=== PATIENT | male | born 1960 | race Caucasian/White ===

== ENCOUNTER 2018-03-19 13:21 | Outpatient (REF) | payer BC, SELFPAY ==
[2018-03-21 11:31] LABS: Hepatitis C Ab w Rflx HCV PCR Negative (NEGAT)
[2018-03-21 11:48] LABS: PSA, Screening 0.8 ng/ml (0-3.5)
== END 2018-03-19 13:41 ==
LOC: NCHCN 13:21
PROVIDERS: PCP Family Medicine; Visit Provider Nurse Practitioner
DX: Z00.00 Encounter for general adult medical examination without abnormal findings (principal); Z11.59 Encounter for screening for other viral diseases; Z12.5 Encounter for screening for malignant neoplasm of prostate
CPT/HCPCS: 84153; 86803

== ENCOUNTER 2019-03-22 17:00 | Outpatient (REF) | payer BC, SELFPAY ==
[2019-03-22 21:06] LABS: ALT 18 U/L (16-63); AST 17 U/L (15-37); Anion Gap 11.1 mmol/L (3-11); BUN 14 mg/dL (7-18); CO2 24.9 mmol/L (21.0-32.0); CREATININE 1.34 mg/dL (0.70-1.30); Calculated LDL 148 mg/dL; Chloride 106 mmol/L (98-107); Cholesterol 209 mg/dL (<200); Estimated GFR 54.37 (mL/min/1.73m2); Glucose 92 mg/dL (74-106); HDL Cholesterol 35 mg/dL (40-60); Potassium 4.5 mmol/L (3.5-5.1); Sodium 142 mmol/L (136-145); Triglyceride 131 mg/dL (<150)
== END 2019-03-22 17:20 ==
LOC: NCHCN 17:00
PROVIDERS: PCP Family Medicine; Visit Provider Nurse Practitioner Family
DX: E66.3 Overweight (principal); E78.5 Hyperlipidemia, unspecified
CPT/HCPCS: 80048; 80061; 84450; 84460

== ENCOUNTER 2019-12-23 14:33 | Outpatient (REF) | payer BC, SELFPAY ==
[2019-12-26 16:26] LABS: Patient Race White; SARS-CoV-2 RNA Undetected (Undetected); SARS-CoV-2 Specimen Source Nasal
== END 2019-12-23 14:53 ==
LOC: NCHCN 14:33
PROVIDERS: PCP Family Medicine; Visit Provider Nurse Practitioner Family
DX: Z20.828 Contact with and (suspected) exposure to other viral communicable diseases (principal)
CPT/HCPCS: U0003

== ENCOUNTER 2020-07-10 13:39 | Outpatient (REF) | payer BC, SELFPAY ==
[2020-07-10 21:59] LABS: Iron 85 ug/dL (65-175)
[2020-07-10 22:02] LABS: ALT 31 U/L (16-63); AST 24 U/L (15-37); Anion Gap 11.1 mmol/L (3-11); BUN 18 mg/dL (7-18); CO2 22.9 mmol/L (21.0-32.0); CREATININE 1.5 mg/dL (0.70-1.30); Calcium 8.7 mg/dL (8.5-10.1); Calculated LDL 139 mg/dL (<100); Chloride 106 mmol/L (98-107); Cholesterol 213 mg/dL (<200); Estimated GFR 47.42 (mL/min/1.73m2); Glucose 97 mg/dL (74-106); HDL Cholesterol 29 mg/dL (40-60); Potassium 4.3 mmol/L (3.5-5.1); Sodium 140 mmol/L (136-145); Triglyceride 225 mg/dL (<150)
[2020-07-13 11:48] LABS: PSA, Screening 0.8 ng/mL (0.0-4.5)
== END 2020-07-10 13:40 | disposition home or self-care (01) ==
LOC: NCHCN 13:39
PROVIDERS: PCP Family Medicine; Visit Provider Nurse Practitioner Family
DX: E78.5 Hyperlipidemia, unspecified (principal); E66.3 Overweight; Z00.00 Encounter for general adult medical examination without abnormal findings
CPT/HCPCS: 80048; 80061; 84153; 83540; 84450; 84460

== ENCOUNTER 2020-08-12 13:08 | Outpatient (REF) | payer BC, SELFPAY ==
[2020-08-12 21:33] LABS: CREATININE 1.4 mg/dL (0.70-1.30); Estimated GFR 51.35 (mL/min/1.73m2)
== END 2020-08-12 13:09 | disposition home or self-care (01) ==
LOC: NCHCN 13:08
PROVIDERS: PCP Family Medicine; Visit Provider Nurse Practitioner Family
DX: R94.4 Abnormal results of kidney function studies (principal)
CPT/HCPCS: 82565

== ENCOUNTER 2020-12-17 16:23 | Inpatient (IN) | payer BC, SELFPAY ==
[2020-12-17] VITALS (33 sets, daily range): BP systolic 121–133; BP diastolic 72–92; PULSE 80–96; RESP 0–30; TEMP 36.8; O2SAT 94–99
--- NOTE | 2020-12-17 16:30 | RT.EKG_ITS ---
APPROVED REPORT Exam: Resting ECG Reason for Exam: SOB Patient Location: E HR:95 bpm ECG Measurements Heart Rate 95 AXIS LA 183 P 56 QRSd 92 QRS -59 QT 344 T 53 QTc 433 Conclusion Sinus rhythm...normal P axis, V-rate 60- 99 Probable left atrial enlargement...P >50mS, <-0.10mV V1 LAD, consider left anterior fascicular block...axis(240,-40), S>R II III aVF. Sinus. LAFB. No STEMI. I have reviewed and interpreted ECG and agree with software generated interpretation.
--- NOTE | 2020-12-17 17:00 | DI.CT_ITS ---
Exam(s) CT CHEST PE CTA EXAM: CT CHEST PE CTA CLINICAL HISTORY: Left leg swelling, Dyspnea, R/O PE, PNA. TECHNIQUE: Imaging Protocol: Axial CT angiography was performed with multi-slice acquisition and mu lti-planar and/or 3D reconstructions. CONTRAST MATERIAL: Intravenous: Omnipaque 350 Contrast volume:structured data in ml COMPARISON: No exams were available for comparison FINDINGS: Pulmonary Arteries: Large filling defects bilateral lower lobe pulmonary arteries. Small embolus see n in anterior left upper lobe vessel small subsegmental thrombus right upper lobe branch. Tracheobro nchial tree: Patent where visualized. Mediastinum and Stefania: No dominant adenopathy or fluid collection. Pulmonary parenchyma: No consolidation or dominant measurable mass. No architectural distortion. Pleura: No effusion or pneumothorax. Heart: The heart is not dilated. Aorta: Ascending aorta dilated of 4.5 cm. Upper abdomen: Unremarkable. Bones: Unremarkable IMPRESSION: Significant bilateral bilateral lower lobe pulmonary emboli, RADIATION DOSE DELIVERED: 592.13mGy.cm Total DLP DATA REPOSITORY: All CT scans at this facility are submitted to the National Radiology Data Registry (NRDR) Dose Index Registry (DIR) with the [employer] (ACR). RADIATION OPTIMIZATION: All CT scans at this facility use at least one of these dose optimization te chniques: automated exposure control; mA and/or kV adjustment per patient size (includes targeted exa ms where dose is matched to clinical indication); or iterative reconstruction.
[2020-12-17 17:09] LABS: Source Nasal/Nares
--- NOTE | 2020-12-17 17:10 | ED.GENADUL_ITS ---
Discharge Plan Discharge Details Chief Complaint: Vascular Admit Date/Time: 12/17/20 20:18 Admit Provider: Uche Gilmore Attending Provider: Uche Gilmore Primary Care Provider: Ricarda Suh ED Provider: Dipti Springer Discharge Data Discharge Date/Time-TO BE ENTERED AT DEPARTURE: 12/17/20 21:14 Medical Decision Making 60-year-old male presents to the ER with chief complaint of left leg swelling and pain which began approximately 1 week ago. Patient reports that he was recently driving a car from [place]. He was seen by his primary care provider today and was referred here. He also reports dyspnea, shortness of breath. He denies any chest pain. Per temporary staff accountant left calf is 2 cm larger than the right. He has a past medical history of hypertension and anxiety. He is a former smoker. No other associated symptoms. Cardiac work-up included serial troponins, PT APTT, D-dimer. Covid swab D-dimer elevated at 4849 Covid negative, rate my blood cell count shows 14.33, absolute neutrophil 7.18, BUN 19 creatinine 1.5 GFR 47, alk phos 130 1929: Spoke with [facility] radiologist who reports bilateral PE's, will seek admission. Give left lower extremity as a source will give Lovenox 1 mg/kg. 1940: Spoke with Dr. Gilmore who is on for hospitalist regarding patient case and details. He agrees to accept patient for admission. Discussed plan of care with patient and family who verbalized understanding and are in agreement with plan. Patient is hemodynamically stable nontachycardic 97% on room air. [facility] report CTA Chest PE FINDINGS: Pulmonary arteries: There is filling defect in the left lower lobe segmental branch of the left pulmonary artery propagating into the subsegmental branches, compatible with pulmonary embolism. There is also filling defect in the distal primary branch of the right pulmonary artery propagating into right lower lobe branches, compatible pulmonary embolism. Aorta: Unremarkable. No aortic aneurysm. No aortic dissection. Lungs: There is a 3 mm subpleural left lower lobe pulmonary nodule. Pleural spaces: Unremarkable. No pneumothorax. No pleural effusion. Heart: The RV/LV ratio is 1.4. No cardiomegaly. No pericardial effusion. Lymph nodes: Unremarkable. No enlarged lymph nodes. Bones/joints: Unremarkable. No acute fracture. Soft tissues: Unremarkable. IMPRESSION: 1. Moderate to large filling defects in the right and left pulmonary arteries, compatible with pulmonary embolism. 2. 3 mm left lower lobe pulmonary nodule Patient remained alert and oriented hemodynamically stable throughout stay. This text was generated using [employer]ens[employer] system, please disregard any oddities of phrase or misspellings. HPI General Mode of arrival: wheelchair . Date/Time Provider Initiated Documentation: 12/17/20 16:36 . Limitations to Documentation: no limitations . Information obtained by: patient, RN notes reviewed and old records reviewed . HPI Narrative: 60-year-old male presents to the ER with chief complaint of left leg swelling and pain which began approximately 1 week ago. Patient reports that he was recently driving a car from [place]. He was seen by his primary care provider today and was referred here. He also reports dyspnea, shortness of breath. He denies any chest pain. Per temporary staff accountant left calf is 2 cm larger than the right. He has a past medical history of hypertension and anxiety. He is a former smoker. No other associated symptoms. Related Data Home Medications Medication Instructions Recorded Confirmed duloxetine 20 mg PO DAILY 03/21/17 12/17/20 bupropion HCl 150 mg PO DAILY 12/17/20 12/17/20 ropinirole 0.25 mg PO HS 12/17/20 12/17/20 Allergies Allergy/AdvReac Type Severity Reaction Status Date / Time buspirone Allergy Unverified 12/17/20 16:43 General Stated Complaint: Vascular KALLIE: 2 Review of Systems All systems reviewed & are unremarkable except as noted in HPI and below Cardiovascular Cardiovascular: Reports leg edema, Reports dyspnea and Reports dyspnea on exertion Respiratory Respiratory: Reports as per HPI, Reports dyspnea and Reports dyspnea on exertion [facility] Surgical History Tonsillectomy Social History Smoking/Tobacco Use Status: Former Tobacco Use Smoking risk assessment performed?: Yes Alcohol Intake: former Drug use: Never Substance use type: does not use Do you feel safe at home: Yes Do you feel safe in your relationship?: Yes Exam Narrative Exam Narrative: Constitutional: Alert and oriented x3. Appears stated age. Normal body habitus. Head: Normocephalic, no trauma. Eyes: Pupils PERRLA, Red reflex noted, EOM's intact. Eyelids symmetrical without lesions, discharge, or swelling. ENT: Bilateral TM's WNL, External ear normal to inspection, no mastoid TTP, swelling, or erythema, Nasal turbinates WNL, no nasal discharge. Normal dentition, Posterior pharynx WNL, no exudate. Chest: RRR, Normal S1, S2, distal pulses intact. Resp: Left lower lobe expiratory rhonchi, lungs clear to auscultation all other lobes. Musculoskeletal: Unable to assess gait, dorsal pedal pulses intact bilateral feet, they are cool to the touch. No mottling or cyanosis noted. Is complaining of left lower extremity pain and swelling. Skin: No suspicious rashes or lesions. Capillary refill less than 2 sec. Neurologic: Cranial nerves II-XII intact. Alert and oriented x 3. DTR's intact. Hematologic/Lymphatic: No ecchymosis, no lymphadenopathy. Course Vital Signs Vital signs: Vital Signs Temperature 36.8 C 12/17/20 16:39 Pulse 80 12/17/20 16:39 Respiratory Rate 13 12/17/20 16:39 Blood Pressure 133/92 H 12/17/20 16:39 Pulse Oximetry 99 12/17/20 16:39 Temperature 36.8 C 12/17/20 16:39 Temperature Source Skin 12/17/20 16:39 Pulse 80 12/17/20 16:39 Respiratory Rate 19 12/17/20 16:56 Respiratory Effort Non-Labored 12/17/20 16:45 Blood Pressure 133/92 H 12/17/20 16:39 Pulse Oximetry 99 12/17/20 16:39 Oxygen Delivery Method Room Air 12/17/20 16:39 Oxygen Flow Rate 0 12/17/20 16:39 Pain Level 9 12/17/20 16:39 Lab/Test Results Lab/Test Results: Laboratory Tests Range/Units 12/17/20 17:03 COVID-19 Source Nasal/Nares
[2020-12-17 17:12] LABS: Abs Immature Grans 0.05 10^3/uL (0.0-0.06); Absolute Basophil Count 0.06 10^3/uL (0.0-0.2); Absolute Eosinophil Count 0.19 10^3/uL (0.0-0.7); Absolute Lymphocyte Count 5.57 10^3/uL (1.2-3.4); Absolute Monocyte Count 1.29 10^3/uL (0.1-0.8); Basophils % 0.4; Eosinophils % 1.3; HCT 45.6 % (40.0-50.0); HGB 15.6 g/dL (13.5-17.5); Immature Grans % 0.3; Lymphocytes % 38.9; MCH 29.2 pg (27.0-33.0); MCHC 34.2 % (32.0-36.0); MCV 85.4 fL (80-95); MPV 9.6 fL (8.0-11.0); Neutrophils % 50.1; Nucleated RBC 0 %; Platelet Count 353 10^3/uL (130-400); RBC 5.34 10^6/uL (4.36-5.78); RDW 12.8 % (11.8-14.1); RDW-SD 39.7 fL; WBC 14.33 10^3/uL (4.4-10.8)
[2020-12-17 17:19] LABS: Absolute Neutrophil Count 7.18 10^3/uL (1.2-6.7)
[2020-12-17 17:27] LABS: Prothrombin Time 10.5 sec (9.3-11.0)
[2020-12-17 17:30] LABS: ALT 19 U/L (16-63); AST 15 U/L (15-37); Albumin 3.5 g/dL (3.4-5.0); Alkaline Phosphatase 130 U/L (46-116); BUN 19 mg/dL (7-18); Bilirubin, Total 0.5 mg/dL (0.2-1.0); CREATININE 1.5 mg/dL (0.70-1.30); Calcium 8.7 mg/dL (8.5-10.1); Chloride 105 mmol/L (98-107); Estimated GFR 47.42 (mL/min/1.73m2); Glucose 105 mg/dL (74-106); Magnesium 2.4 mg/dL (1.8-2.4); Potassium 4.3 mmol/L (3.5-5.1); Sodium 139 mmol/L (136-145); Total Protein 7.9 g/dL (6.4-8.2)
[2020-12-17 17:33] LABS: Troponin I < 0.05 ng/mL (<0.06)
[2020-12-17 17:43] LABS: Diff Comment Agrees w/ Instrument; RBC Morphology Normal
[2020-12-17 17:47] LABS: D-Dimer 4849 ng/mlFEU (<500)
[2020-12-17 18:29] LABS: COVID-19 PCR Negative (Negative)
[2020-12-17] MEDS: Omnipaque 350 MG/ML 100 ML BTL IJ (18:53)
[2020-12-17] MEDS: Normal Saline Flush 10 ML SYR IVP (18:54)
[2020-12-17] MEDS: Normal Saline - Diluent 50 ML VIAL IV (18:54)
--- NOTE | 2020-12-17 19:40 | DI.[facility]AD_ITS ---
PROCEDURE INFORMATION: Exam: CTA Chest With Contrast Exam date and time: 12/17/2020 5:14 PM Age: 60 years old Clinical indication: Other: Left leg swelling, dyspnea, R/O pe, pna TECHNIQUE: Imaging protocol: Computed tomographic angiography of the chest with contrast. 3D rendering (Not supervised by radiologist): MIP and/or 3D reconstructed images were created by the technologist. COMPARISON: CR CHEST 2 VIEWS PA,LAT 06/15/2017 9:10 PM FINDINGS: Pulmonary arteries: There is filling defect in the left lower lobe segmental branch of the left pulmonary artery propagating into the subsegmental branches, compatible with pulmonary embolism. There is also filling defect in the distal primary branch of the right pulmonary artery propagating into right lower lobe branches, compatible pulmonary embolism. Aorta: Unremarkable. No aortic aneurysm. No aortic dissection. Lungs: There is a 3 mm subpleural left lower lobe pulmonary nodule. Pleural spaces: Unremarkable. No pneumothorax. No pleural effusion. Heart: The RV/LV ratio is 1.4. No cardiomegaly. No pericardial effusion. Lymph nodes: Unremarkable. No enlarged lymph nodes. Bones/joints: Unremarkable. No acute fracture. Soft tissues: Unremarkable. IMPRESSION: 1. Moderate to large filling defects in the right and left pulmonary arteries, compatible with pulmonary embolism. 2. 3 mm left lower lobe pulmonary nodule. THIS REPORT CONTAINS FINDINGS THAT MAY BE CRITICAL TO PATIENT CARE. The findings were verbally communicated via telephone conference with THONY BEACH at 7:31 PM EDT on 12/17/2020. The findings were acknowledged and understood. Dictated and Authenticated by: Jimmy Sanchez MD. Ordering:FABIENNE Resendez MD
[2020-12-17] MEDS: Enoxaparin 120 MG/0.8 ML SYR 115 MG SC (19:42)
--- NOTE | 2020-12-17 20:00 | RT.EKG_ITS ---
APPROVED REPORT Exam: Resting ECG Reason for Exam: SOB Patient Location: E HR:82 bpm ECG Measurements Heart Rate 82 AXIS NC 185 P 53 QRSd 94 QRS -56 QT 371 T 44 QTc 434 Conclusion Sinus rhythm...normal P axis, V-rate 60- 99 Inferior infarct, old...Q >35mS, II III aVF I have reviewed and interpreted ECG and agree with software generated interpretation. There are no significant changes compared to prior EKG performed on 12/17/2020 at 16:43.
[2020-12-17 20:24] LABS: Troponin I < 0.05 ng/mL (<0.06)
--- NOTE | 2020-12-17 20:49 | W.PM.HP.N ---
Date of service: 12/17/20 Time of Service: 20:49 Assessment and Plan Assessment and plan (1) Pulmonary emboli: Status: Chronic Assessment and plan: Likely provoked; frequently sedentary / operating a motor vehicle. Significant enough burden to cause AYALA. No supplemental O2 needs at rest; will need to assess with activity. Likely secondary to a LLE DVT; Venous US of LLE pending Therapeutic lovenox initiated. Discuss NOAC options with patient. Echocardiogram to assess for right heart strain. Questionable R atrial enlargment as per findings on EKG. (2) Renal insufficiency: Status: Chronic Assessment and plan: Creatinine 1.4 and 1.5 on several occasions this year. Has dx of hypertension in his records; normotensive during this admission, but may be the source of what is appearing to be CKD. Consider renal US. Avoid nephrotoxic agents and hypotension. Ensure adequate hydration. (3) Anxiety disorder: Status: Acute Assessment and plan: Cont Buproprion and duloxetine (4) Obesity: Status: Chronic Assessment and plan: Added risk factor for DVT. Encourage healthy eating and activity (5) Leukocytosis: Status: Acute Assessment and plan: Questionably demargination of leukocytes. No infectious signs/symptoms. Monitor. (6) Pulmonary nodule: Status: Acute Assessment and plan: 3mm nodule Outpt follow up in 6 months. (7) Essential hypertension: Status: Acute Assessment and plan: SBP in the 120's. Not taking an antihypertensive medication. Monitor. History of Present Illness History of Present Illness Chief Complaint: Dyspnea on exertion, left leg swellig Narrative: This is a 60-year-old male with a h/o HTN and anxiety who presented to the ER with chief complaint of left leg swelling and pain which began approximately 1 week ago. Patient reports that he was recently driving a car from [place] but his believed the symptoms began before that trip. 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 He was seen by his primary care provider and was referred to the ED. He also reports dyspnea with ambulation , shortness of breath. He denies any chest pain. Per staff electronic warfare officer in the ED left calf is 2 cm larger than the right. He is a former smoker but quit at the age of 23. ED w/u showed an elevated d-dimer. WBC count of 14.33. Creatinine 1.5. CTA chest results: Moderate to large filling defects in the right and left pulmonary arteries, compatible with pulmonary embolism. 3 mm left lower lobe pulmonary nodule. Lovenox 1mg/kg BID dosing initiated in the ED with consideration of options for anticoagulation to be discussed further after admission. Review of Systems All systems reviewed & are unremarkable except as noted in HPI and below PFSH Surgical History Tonsillectomy Social History Smoking/Tobacco Use Status: Former Tobacco Use Smoking risk assessment performed?: Yes Alcohol Intake: former Drug use: Never Substance use type: does not use Do you feel safe at home: Yes Do you feel safe in your relationship?: Yes Meds Allergies and Home Medications Allergies Allergy/AdvReac Type Severity Reaction Status Date / Time buspirone Allergy Unverified 12/17/20 16:43 Home Medications Medication Instructions Recorded Confirmed Type duloxetine 20 mg PO DAILY 03/21/17 12/17/20 History bupropion HCl 150 mg PO DAILY 12/17/20 12/17/20 History ropinirole 0.25 mg PO HS 12/17/20 12/17/20 History Exam Const General: cooperative and no acute distress Nutritional Appearance: obese Orientation: alert and oriented x3 Eyes General: appearance normal, both eyes and all related structures Sclera: sclerae normal Pupils: PERRL Neck Neck: normal visual inspection and no JVD Resp Effort & Inspection: normal respiratory effort Auscultation: clear to auscultation bilaterally Cardio Rate: regular rate Rhythm: regular rhythm Heart Sounds: S1 normal and S2 normal GI Palpation: soft and nontender Auscultation: normal bowel sounds Skin General skin exam: no rashes or lesions noted Neuro General: moves all extremities Cranial Nerves: facial strength normal Cognition: normal cognition Speech: speech normal Extrem General: calf tenderness on the left (with dorsiflexion of ankle) and edema Laterality: left (calf/ankle) Psych Appearance: grossly normal Mental Status: mental status grossly normal Speech and Movement: speech and movement normal Mood: congruent mood Affect: normal affect Results Labs Result diagrams: 12/17/20 17:00 12/17/20 17:00 Labs: Laboratory Results - last 24 hr 12/17/20 12/17/20 12/17/20 17:00 17:00 17:00 WBC 14.33 H RBC 5.34 Hgb 15.6 Hct 45.6 MCV 85.4 MCH 29.2 MCHC 34.2 RDW 12.8 Plt Count 353 MPV 9.6 Immature Gran % 0.3 Neutrophils % 50.1 Lymphocytes % 38.9 Monocytes % 9.0 Eosinophils % 1.3 Basophils % 0.4 Nucleated RBC % 0 Absolute Neutrophils 7.18 H Absolute Lymphocytes 5.57 H Absolute Monocytes 1.29 H Absolute Eosinophils 0.19 Absolute Basophils 0.06 RBC Morphology Normal PT 10.5 INR 1.0 APTT 27.0 D-Dimer 4849 H Sodium 139 Potassium 4.3 Chloride 105 Carbon Dioxide 25.0 Anion Gap 9.0 BUN 19 H Creatinine 1.5 H Estimated GFR/1.73 m2 47.42 Glucose 105 Calcium 8.7 Magnesium 2.4 Total Bilirubin 0.5 AST 15 ALT 19 Alkaline Phosphatase 130 H Troponin I < 0.05 Total Protein 7.9 Albumin 3.5 COVID-19 Source SARS-CoV-2 (PCR) 12/17/20 12/17/20 17:03 20:00 WBC RBC Hgb Hct MCV MCH MCHC RDW Plt Count MPV Immature Gran % Neutrophils % Lymphocytes % Monocytes % Eosinophils % Basophils % Nucleated RBC % Absolute Neutrophils Absolute Lymphocytes Absolute Monocytes Absolute Eosinophils Absolute Basophils RBC Morphology PT INR APTT D-Dimer Sodium Potassium Chloride Carbon Dioxide Anion Gap BUN Creatinine Estimated GFR/1.73 m2 Glucose Calcium Magnesium Total Bilirubin AST ALT Alkaline Phosphatase Troponin I < 0.05 Total Protein Albumin COVID-19 Source Nasal/Nares SARS-CoV-2 (PCR) Negative Last Vital Signs Temp 36.8 C 12/17/20 16:39 Pulse 82 12/17/20 20:01 Resp 17 12/17/20 20:20 BP 121/80 12/17/20 20:01 Pulse Ox 96 12/17/20 20:20
[2020-12-17] MEDS: Melatonin 3 MG TAB PO (22:41)
[2020-12-18] VITALS (7 sets, daily range): BP systolic 105–129; BP diastolic 70–88; PULSE 76–91; RESP 14–18; TEMP 36.4–37.2; O2SAT 91–98
--- NOTE | 2020-12-18 | DI.US_ITS ---
Exam(s) US LOWER EXTREMITY VENOUS LT EXAM: US LOWER EXTREMITY VENOUS LT CLINICAL HISTORY: Pulmonary emboli, swelling.. TECHNIQUE: Lower extremity venous ultrasound performed using grayscale, color-flow, and spectral Do ppler analysis. COMPARISON: No exams were available for comparison FINDINGS: The common femoral, profundus femoral through mid femoral vein are free of thrombus. The distal femo ral vein, popliteal vein through peroneal veins show thrombus. The length of the thrombus is approxi mately 20 cm in length. The posterior tibial veins are patent. No saphenous vein thrombosis or othe r superficial venous thrombosis is seen. No hematoma or Vazquez's cyst is seen. IMPRESSION: Deep venous thrombosis from the distal femoral vein through peroneal veins. DATA REPOSITORY:
[2020-12-18 07:08] LABS: Abs Immature Grans 0.04 10^3/uL (0.0-0.06); Basophils % 0.8; HCT 43.9 % (40.0-50.0); HGB 14.9 g/dL (13.5-17.5); Immature Grans % 0.3; MCH 29.1 pg (27.0-33.0); MCHC 33.9 % (32.0-36.0); MCV 85.7 fL (80-95); MPV 10.2 fL (8.0-11.0); Monocytes % 10.5; Neutrophils % 50.4; Nucleated RBC 0 %; Platelet Count 345 10^3/uL (130-400); RBC 5.12 10^6/uL (4.36-5.78); RDW 12.9 % (11.8-14.1); RDW-SD 40.2 fL; WBC 13.32 10^3/uL (4.4-10.8)
[2020-12-18 07:10] LABS: Absolute Basophil Count 0.11 10^3/uL (0.0-0.2); Absolute Eosinophil Count 0.27 10^3/uL (0.0-0.7); Absolute Neutrophil Count 6.71 10^3/uL (1.2-6.7)
[2020-12-18] MEDS: buPROPion-XL 150 MG TABCR PO (08:12)
[2020-12-18] MEDS: DULoxetine 20 MG CAP PO (08:13)
[2020-12-18] MEDS: Enoxaparin 120 MG/0.8 ML SYR SC (08:13)
[2020-12-18 08:14] LABS: BUN 22 mg/dL (7-18); CREATININE 1.5 mg/dL (0.70-1.30); Calcium 8.3 mg/dL (8.5-10.1); Chloride 104 mmol/L (98-107); Estimated GFR 47.42 (mL/min/1.73m2); Glucose 103 mg/dL (74-106); Magnesium 2.2 mg/dL (1.8-2.4); Potassium 4.5 mmol/L (3.5-5.1); Sodium 139 mmol/L (136-145)
[2020-12-18] MEDS: Normal Saline Flush 10 ML SYR IVP (08:15)
[2020-12-18] MEDS: Acetaminophen 325 MG TAB PO (11:59)
--- NOTE | 2020-12-18 16:38 | DSE_ITS ---
Date of service: 12/18/20 Time of Service: 16:45 DS: Diagnosis Discharge Diagnosis (1) Pulmonary emboli: Status: Chronic (2) DVT (deep venous thrombosis): Status: Chronic Asessment and Plan: LLE, present on admission (3) Renal insufficiency: Status: Chronic (4) Anxiety disorder: Status: Chronic (5) Leukocytosis: Status: Acute Asessment and Plan: reactive (6) Pulmonary nodule: Status: Acute (7) Essential hypertension: Status: Acute (8) Obesity: Status: Chronic (9) COVID-19 ruled out by laboratory testing: Status: Acute Discharge Plan Disposition Patient Disposition: HOME Condition: Improving Discharge Details Reason For Visit: Pulmonary Emboli Admit Date/Time: 12/17/20 20:18 Admit Provider: Uche Gilmore Attending Provider: Uche Gilmore Primary Care Provider: Ricarda Suh Hospital Course Hospital Course: Mr Martinez is a 60 year old male with PMHx of anxiety disorder, CKD III, obesity with BMI of 33, who was admitted to [facility] hospitalist service on 12/17/20 and is being discharged unexpectedly early on 12/18/20 after presenting to [facility] ED with left leg swelling and pain and being diagnosed with bilateral pulmonary emboli as wel as a DVT from left distal femoral vein through peroneal veins. This is felt to be due to immobilization during lengthy drives to and from [place]. The patient is initiated on lovenox. He was hemodynamically stable and has not had any arrhythmias. His troponins were negative. Echo was unavailable during his hospitalization but is being ordered for him as an outpatient. While initially there was a low oxygen requirement, this completely resolved by the time of discharge, including on ambulation. The patient is felt to be safe for discharge home today with a prescription for eliquis, which is confirmed to be covered by his insurance. He is being referred to [facility] hematology for follow up. Additionally, there is a 3 mm lung nodule noted on his CTA of the chest, which will need to be followed up by PCP as outpatient. Care for patient as well as completion of his discharge summary on day of discharge took 45 minutes. Home Meds and New Rx's Prescriptions: New Eliquis 5 mg tablet See Rx Instructions .ROUTE .COMPLEX Qty: 74 RF: 0 Continued duloxetine 20 MG capsule,delayed release(DR/EC) 20 mg PO DAILY RF: 0 ropinirole 0.25 mg tablet 0.25 mg PO HS RF: 0 bupropion HCl 150 mg tablet extended release 24 hr 150 mg PO DAILY RF: 0 Discharge Instructions Instructions: Apixaban (By mouth), Pulmonary Embolism (DC), Deep Vein Thrombosis (DC) Additional Instructions: Return to the hospital with any fever, bleeding, chest pain, dizziness, or sh ortness of breath. Follow up with your PCP and with hematology. Follow up for your echocardiogram. Take eliquis (apixaban) as prescribed - do not miss any doses. Stand Alone Forms: Nursing Discharge Form Referrals: HEMATOLOGY/ONC,[facility] [OTHER] - (Office will call you with follow up appointment.) Ricarda Suh [Primary Care Provider] - (Please call Monday to make a follow up appointment) Activity:: Activity as Tolerated Equipment/Supplies:: No Equipment Needed Diet:: As Tolerated Discharge Orders Discharge Orders: Discharge Order (Routine); Ordered 12/18/20 Ordered By: Trina Taylor Other Ambulatory Orders: US echocardiogram (Routine) Timeframe: [id number] Facility: [facility] - Location: DIAGNOSTIC IMAGING Ordered By: Trina Taylor DS: Summary Time Spent with Patient providing and/or coordinating discharge services: Greater than 30 minutes Status at Discharge Functional status at discharge: independent ambulation Overall status at discharge: patient is back to baseline Mental Status: mental status grossly normal Speech and Movement: speech and movement normal Mood: congruent mood Affect: normal affect Exam Narrative Exam Narrative: General: Very pleasant middle-aged male who appears to be slightly [place], A&Ox3 HEENT: EOMI, MMM Heart: RRR, no m/r/g Lungs: CTAB Abdomen: soft, nontender, nondistended Extremities: trace edema LLE, no edema RLE Psych Mental Status: mental status grossly normal Speech and Movement: speech and movement normal Mood: congruent mood Affect: normal affect DS: Data Vitals/I&O Vitals and I&O: Vital Signs Temperature 36.4 C L 12/18/20 15:51 Temperature Source Temporal Artery Scan 12/18/20 15:51 Pulse 76 12/18/20 15:51 Pulse Rhythm Regular 12/18/20 02:21 Pulse 88 12/17/20 20:20 Respiratory Rate 18 12/18/20 15:51 Respiratory Effort Non-Labored 12/18/20 02:21 Respiratory Depth Normal 12/18/20 02:21 Respiratory Pattern Normal 12/18/20 02:21 Blood Pressure 110/70 12/18/20 15:51 Blood Pressure Mean 89 12/17/20 20:01 Pulse Oximetry 96 12/18/20 15:51 Oxygen Delivery Method Room Air 12/18/20 15:51 Oxygen Flow Rate 0 12/18/20 15:51 Pain Level 3 12/18/20 11:59 Intake & Output 12/17/20 12/18/20 12/18/20 23:59 11:59 23:59 Intake Total 250 / 250 910 / 910 Balance 250 / 250 910 / 910 Weight 113.398 kg Intake: IV Oral 240 / 240 910 / 910 Other: Urine Color Yellow Urine Appearance Clear Clear Voiding Methods Toilet Data Completed and Pending Completed studies during hospitalization [Text1]: Venous doppler LLE: Deep venous thrombosis from the distal femoral vein through peroneal veins. CTA chest: 1. Moderate to large filling defects in the right and left pulmonary arteries, compatible with pulmonary embolism. 2. 3 mm left lower lobe pulmonary nodule. Labs on day of discharge: Labs from last 24 hours 12/18/20 12/18/20 12/17/20 06:25 06:25 20:00 WBC 13.32 H RBC 5.12 Hgb 14.9 Hct 43.9 MCV 85.7 MCH 29.1 MCHC 33.9 RDW 12.9 Plt Count 345 MPV 10.2 Immature Gran % 0.3 Neutrophils % 50.4 Lymphocytes % 36.0 Monocytes % 10.5 Eosinophils % 2.0 Basophils % 0.8 Nucleated RBC % 0 Absolute Neutrophils 6.71 H Absolute Lymphocytes 4.80 H Absolute Monocytes 1.40 H Absolute Eosinophils 0.27 Absolute Basophils 0.11 RBC Morphology PT INR APTT D-Dimer Sodium 139 Potassium 4.5 Chloride 104 Carbon Dioxide 24.0 Anion Gap 11.0 BUN 22 H Creatinine 1.5 H Estimated GFR/1.73 m2 47.42 Glucose 103 Calcium 8.3 L Magnesium 2.2 Total Bilirubin AST ALT Alkaline Phosphatase Troponin I < 0.05 Total Protein Albumin PSA Screen COVID-19 Source SARS-CoV-2 (PCR) 12/17/20 12/17/20 12/17/20 17:03 17:00 17:00 WBC RBC Hgb Hct MCV MCH MCHC RDW Plt Count MPV Immature Gran % Neutrophils % Lymphocytes % Monocytes % Eosinophils % Basophils % Nucleated RBC % Absolute Neutrophils Absolute Lymphocytes Absolute Monocytes Absolute Eosinophils Absolute Basophils RBC Morphology PT 10.5 INR 1.0 APTT 27.0 D-Dimer 4849 H Sodium Potassium Chloride Carbon Dioxide Anion Gap BUN Creatinine Estimated GFR/1.73 m2 Glucose Calcium Magnesium Total Bilirubin AST ALT Alkaline Phosphatase Troponin I Total Protein Albumin PSA Screen Pending COVID-19 Source Nasal/Nares SARS-CoV-2 (PCR) Negative 12/17/20 12/17/20 17:00 17:00 WBC 14.33 H RBC 5.34 Hgb 15.6 Hct 45.6 MCV 85.4 MCH 29.2 MCHC 34.2 RDW 12.8 Plt Count 353 MPV 9.6 Immature Gran % 0.3 Neutrophils % 50.1 Lymphocytes % 38.9 Monocytes % 9.0 Eosinophils % 1.3 Basophils % 0.4 Nucleated RBC % 0 Absolute Neutrophils 7.18 H Absolute Lymphocytes 5.57 H Absolute Monocytes 1.29 H Absolute Eosinophils 0.19 Absolute Basophils 0.06 RBC Morphology Normal PT INR APTT D-Dimer Sodium 139 Potassium 4.3 Chloride 105 Carbon Dioxide 25.0 Anion Gap 9.0 BUN 19 H Creatinine 1.5 H Estimated GFR/1.73 m2 47.42 Glucose 105 Calcium 8.7 Magnesium 2.4 Total Bilirubin 0.5 AST 15 ALT 19 Alkaline Phosphatase 130 H Troponin I < 0.05 Total Protein 7.9 Albumin 3.5 PSA Screen COVID-19 Source SARS-CoV-2 (PCR) [facility] Medical History (Updated 12/18/20 @ 16:45 by Trina Taylor MD) Anxiety disorder Obesity Renal insufficiency Surgical History Tonsillectomy Social History Smoking/Tobacco Use Status: Former Tobacco Use Smoking risk assessment performed?: Yes Alcohol Intake: former Drug use: Never Substance use type: does not use Do you feel safe at home: Yes Do you feel safe in your relationship?: Yes
[2020-12-18 18:11] LABS: PSA, Screening 0.7 ng/mL (0.0-4.5)
--- NOTE | 2020-12-18 20:12 | PDOC.CMPRO ---
- If Service Date Differs Date of service: 12/18/20 Time of Service: 20:12 Care Management Progress Note S/O: Shady was discharged home today, less than 24 hours after admission. KARL was asked to meet with Shady regarding a new prescription for Eliquis. KARL called the pharmacy, and found that he has a $0 copay. KARL met with Shady as he was eating his lunch today. He was pleasant and engaged in interaction. He reported that he was told he may be discharged soon. KARL provided information about his new medication being covered by his insurance, which he was happy about. He stated that he splits his time between [place] and [place], and he is very independent. He did not share any concerns with KARL. He was driven home via private vehicle by his . A: Shady is a 60 year old male admitted to [facility] on 12/17/20 with Pulmonary Emboli. P: Shady returned home today with no new services. His drove him home via private vehicle. He will follow up with his PCP and discharge plan of care.
== END 2020-12-18 17:57 | disposition home or self-care (01) | DRG 176 ==
LOC: ER 17:16 → MS 21:07
PROVIDERS: Internal Medicine; Admitting Provider Family Medicine; Emergency Provider Registered Nurse Emergency; PCP Family Medicine; Visit Provider Family Medicine
DX: I26.99 Other pulmonary embolism without acute cor pulmonale (principal); I82.452 Acute embolism and thrombosis of left peroneal vein; I82.412 Acute embolism and thrombosis of left femoral vein; N18.9 Chronic kidney disease, unspecified; I12.9 Hypertensive chronic kidney disease with stage 1 through stage 4 chronic kidney disease, or unspecified chronic kidney disease; F41.9 Anxiety disorder, unspecified; E66.9 Obesity, unspecified; R91.1 Solitary pulmonary nodule; D72.829 Elevated white blood cell count, unspecified; Z87.891 Personal history of nicotine dependence; Z20.822 Contact with and (suspected) exposure to COVID-19; Z68.33 Body mass index [BMI] 33.0-33.9, adult
CPT/HCPCS: 36415; 71275; 80048; 80053; 84153; 87635; 93005; 96372; 99285; 83735; 84484; 85025; 85379; 85610; 85730; 93010; 93971; 99223; 99239; J1650; J3490

== ENCOUNTER 2020-12-21 14:44 | Outpatient (CLI) | payer BC, SELFPAY | END 2020-12-21 15:04 | PROVIDERS: PCP Family Medicine; Visit Provider Family Medicine | DX: I34.0 Nonrheumatic mitral (valve) insufficiency (principal); I77.810 Thoracic aortic ectasia; R06.02 Shortness of breath | CPT/HCPCS: 93306 ==

== ENCOUNTER → 2021-07-23 18:10 | Outpatient (CLI) | payer BC, SELFPAY ==
--- NOTE | 2021-07-23 15:19 | DI.RAD_ITS ---
Exam(s) XR CHEST 2V PA LATERAL EXAM: XR CHEST 2V PA LATERAL CLINICAL HISTORY: SOB R06.02 PULMONARY NODULE R91.1 SMOKER F17.200 TECHNIQUE: 2D digital imaging was performed of the chest. Images were obtained. PA and lateral v iews were obtained. COMPARISON: CR CHEST 2 VIEWS PA,LAT from 06/15/2017 FINDINGS: MEDIASTINUM: Normal. HEART: Normal. PULMONARY VASCULATURE: Normal. LUNGS: Clear. The lungs are hyperinflated consistent with underlying COPD. No pulmonary nodules are identified. PLEURAL SPACE: No pleural effusion or pneumothorax. BONE:Within normal limits for the patient's age. OTHER FINDINGS:Normal. IMPRESSION: No acute pulmonary findings. DATA REPOSITORY: RADIATION DOSE DELIVERED:
== END ==
PROVIDERS: PCP Family Medicine; Visit Provider Nurse Practitioner Family
DX: R06.02 Shortness of breath (principal); F17.200 Nicotine dependence, unspecified, uncomplicated; J44.9 Chronic obstructive pulmonary disease, unspecified; R91.1 Solitary pulmonary nodule
CPT/HCPCS: 71046

== ENCOUNTER 2021-08-19 17:52 | Outpatient (REF) | payer BC, SELFPAY ==
[2021-08-19 18:34] LABS: HCT 46.9 % (40.0-50.0); HGB 15.7 g/dL (13.5-17.5); MCH 29.1 pg (27.0-33.0); MCHC 33.5 % (32.0-36.0); MCV 87 fL (80-95); MPV 10.7 fL (8.0-11.0); Platelet Count 366 10^3/uL (130-400); RBC 5.39 10^6/uL (4.36-5.78); RDW 12.7 % (11.8-14.1); RDW-SD 40.5 fL; WBC 9.01 10^3/uL (4.4-10.8)
[2021-08-19 18:56] LABS: ALT 31 U/L (16-63); AST 32 U/L (15-37); Albumin 3.8 g/dL (3.4-5.0); Alkaline Phosphatase 103 U/L (46-116); Anion Gap 10.7 mmol/L (3-11); BUN 20 mg/dL (7-18); Bilirubin, Total 0.4 mg/dL (0.2-1.0); CO2 21.3 mmol/L (21.0-32.0); CREATININE 1.4 mg/dL (0.70-1.30); Calcium 8.4 mg/dL (8.5-10.1); Calculated LDL 120 mg/dL (<100); Chloride 108 mmol/L (98-107); Cholesterol 185 mg/dL (<200); Estimated GFR 51.18 (mL/min/1.73m2); Glucose 100 mg/dL (74-106); HDL Cholesterol 30 mg/dL (40-60); Potassium 3.9 mmol/L (3.5-5.1); Sodium 140 mmol/L (136-145); TSH (W/Ref FT4) 1.12 uIU/mL (0.36-3.74); Total Protein 7.4 g/dL (6.4-8.2); Triglyceride 177 mg/dL (<150)
== END 2021-08-19 17:53 | disposition home or self-care (01) ==
LOC: NCHCN 17:52
PROVIDERS: PCP Family Medicine; Visit Provider Nurse Practitioner Family
DX: R68.89 Other general symptoms and signs (principal); E66.9 Obesity, unspecified; R07.89 Other chest pain; E78.5 Hyperlipidemia, unspecified
CPT/HCPCS: 80053; 80061; 85027; 84443

== ENCOUNTER → 2021-09-07 00:49 | Outpatient (CLI) | payer BC, SELFPAY ==
--- NOTE | 2021-09-07 | DI.CT_ITS ---
Exam(s) CT CHEST PE CTA EXAM: CT CHEST PE CTA CLINICAL HISTORY: F/U PE, H/O LLL NODULE,I26.99,R91.1. TECHNIQUE: Imaging Protocol: CT angiography of the chest was performed using pulmonary embolus corry col. Multi planar reconstructions were performed. CONTRAST MATERIAL: Intravenous: Omnipaque 350 Contrast volume: 100 cc COMPARISON: CT CT CHEST PE CTA from 12/17/2020 FINDINGS: CHEST: PULMONARY ARTERIES: There are no intraluminal filling defects to suggest acute pulmonary emboli.The p reviously present bilateral pulmonary emboli seen on 12/17/2020 appear to have resolved. There are n o intraluminal filling defects at this time. LUNGS: There are no infiltrates nor evidence of pulmonary infarction.. There are no pleural effusions . MEDIASTINUM: There is no hilar nor mediastinal adenopathy. Visualized thyroid unremarkable. CARDIAC: Heart size is upper normal. There is no pericardial effusion.There is aneurysmal dilatation of the ascending thoracic aorta which exhibits diameter 4.9 cm. No dissection. The diameter of the mid aortic arch is 2.7 cm. Diameter of the proximal descending thoracic aorta is 3 cm. Diameter of the mid descending thoracic aorta is 3 cm. Diameter of the distal descending thoracic aorta is 2.6 cm. No shift of the interventricular septum. No prominent reflux of contrast into the intrahepatic veins. PARTIALLY VISUALIZED UPPERMOST ABDOMEN: OSSEOUS: There is a fracture of the posterolateral aspect of the left 9th rib again noted, nondisplaced. No a dditional rib fractures evident. No compression fractures.. IMPRESSION: 1. No evidence of acute pulmonary emboli. Previously present bilateral pulmonary emboli seen on 12/04 appears to have resolved. No evidence of pulmonary infarction.No pleural effusions. 2. Dilated ascending thoracic aorta which exhibits diameter of 4.9 cm. There is no evidence of aorti c dissection. 3. Again noted is a nondisplaced fracture of the posterolateral aspect of the left 9th rib, unchanged RADIATION DOSE DELIVERED: 593.54mGy.cm Total DLP DATA REPOSITORY: All CT scans at this facility are submitted to the National Radiology Data Registry (NRDR) Dose Index Registry (DIR) with the [employer] (ACR). RADIATION OPTIMIZATION: All CT scans at this facility use at least one of these dose optimization te chniques: automated exposure control; mA and/or kV adjustment per patient size (includes targeted exa ms where dose is matched to clinical indication); or iterative reconstruction.
[2021-09-07] MEDS: Normal Saline Flush 10 ML SYR IVP (11:38)
[2021-09-07] MEDS: Omnipaque 350 MG/ML 100 ML BTL IJ (11:39)
== END ==
PROVIDERS: PCP Family Medicine; Visit Provider Nurse Practitioner Family
DX: R91.1 Solitary pulmonary nodule (principal); I77.810 Thoracic aortic ectasia; S22.32XA Fracture of one rib, left side, initial encounter for closed fracture; X58.XXXA Exposure to other specified factors, initial encounter; Z86.711 Personal history of pulmonary embolism
CPT/HCPCS: 71275; J3490

== ENCOUNTER → 2021-09-22 00:33 | Outpatient (CLI) | payer BC, SELFPAY ==
--- OUTSIDE RECORDS SUMMARY | 2021-09-22 00:34 | XMS_ITS | Encounter Summary ---
:1960 Author Organization [facility] [place] [address] Care Team Providers Name Role Phone Dyllan Lozada MD Primary Care Provider Reason for Visit Reason Comments Procedure Encounter Details Date Type Department Care Team Description 03/29/2013 Office Visit Dermatology at [facility] Basal c ell carcinoma [place] MD (Primary Dx) [address] Faisal B DERMATOLOGY [place], [place] [address] [id number] [phone] Social History Tobacco Use Types Packs/Day Years Used Date Unknown If Ever Smoked Sex Assigned at Date Recorded Not on file documented as of this encounter Progress Notes [facility] MD - 03/29/2013 11:51 AM EST Clinical Impression: Shave biopsy proven sclerosing BCCA, left forehead. Size: 1 cm, with margins 1.6 cm. Deep suture: 4-0 Vicryl. Surface suture: 5-0 Ethilon. Followup: One week for suture removal and biopsy results. Indications for surgery, possible adverse outcomes, and activity restrictions were discussed. Informed verbal consent was obtained. Skin surface was prepared with 4% chlorhexidine and draped in the usual sterile manner. An excision was carried out of the circular sclerosing BCCA of the left forehead and a square piece of tissue removed, and then bilateral advancement flaps were mobilized and pulled into the center. Therefore, the access being horizontal to close the central defect. Closure was with suture noted above. Patient tolerated well. Triangles were removed at each origin of the bilateral advancement flap. The total size of the area sutured to repair the bilateral advance flap was 5.5 cm on edge and 1.5 cm in wedge. Wound was dressed, wound care reviewed. Return to clinic in seven days for suture removal and biopsy results. Begin wound care on Monday. documented in this encounter Plan of Treatment Not on filedocumented as of this encounter Visit Diagnoses Diagnosis Basal cell carcinoma - Primary Basal cell carcinoma of skin, site unspe cified documented in this encounter Care Teams Intake Worker Relationship Specialty Start Date End Date Dyllan Lozada MD PCP - General 03/05/13 01/01/21 [address] [place] [address] documented as of this encounter
--- OUTSIDE RECORDS SUMMARY | 2021-09-22 00:34 | XMS_ITS | Clinical Summary ---
:1960 Author Organization [facility] [place] [address] Care Team Providers Name Role Phone Ricarda Suh MD Primary Care Provider Allergies No known active allergies Medications Medication Sig Dispensed Refills Start Date End Date Status DULoxetine (CYMBALTA) 60 Take 60 mg by 0 Active mg capsule mouth daily. buPROPion (WELLBUTRIN Take 300 mg by 0 Active XL) 300 mg 24 hr tablet mouth every morning. clonAZEpam (KLONOPIN) Take 0.5-1 mg by 0 Active 0.5 mg disintegrating mouth 2 times tablet daily as needed. Psyllium (METAMUCIL) 1.7 Take 1-2 Wafers 0 Active g Wafr by mouth. [place]-3 Fatty Acids-Fish Take 1 capsule 0 Active Oil (FISH OIL) 360-1,200 by mouth. mg Cap Active Problems Problem Noted Date Visit for suture removal 04/05/2013 Basal cell carcinoma 03/29/2013 Other seborrheic keratosis 03/05/2013 Nevus 03/05/2013 Social History Tobacco Use Types Packs/Day Years Used Date Unknown If Ever Smoked Sex Assigned at Date Recorded Not on file Plan of Treatment Health Maintenance Due Date Last Done Comments HIV screen 1976 Hepatitis C Screening 1976 Lipid Screening 1976 Tdap adult 1977 Tetanus vaccine 1977 Colonoscopy 2003 Zoster vaccine (1 of 2) 2008 Covid-19 Vaccine (4 - Booster) 04/30/2021 12/28/2020, 07/08, 06/17/2020 Influenza (Flu) vaccine (1 of 1 - 11/04/2021 Influenza standard series) Insurance Payer Benefit Plan Subscriber ID Effective Dates Phone Address Type / Group [facility] [facility] [id number] 2020-Teresa [phone] [address] [facility] [address] [facility] [id number] Advance Directives Documents on File Type Date Recorded Patient Welt Sole Layer Explanati on Advance Directives and Living 06/28/2012 10:08 AM 06/26/12 Will Care Teams Marketing Sales Manager Relationship Specialty Start Date End Date Ricarda Suh MD PCP - General Family Medicine 01/02/21 [address] [place] [address]
--- OUTSIDE RECORDS SUMMARY | 2021-09-22 00:34 | XMS_ITS | Encounter Summary ---
:1960 Author Organization [place] [address] Care Team Providers Name Role Phone Dyllan Lozada MD Primary Care Provider Reason for Referral Diagnostic Test (Routine) - Closed Specialty Diagnoses / Procedures Referred By Contact Refer red To Contact Cardiology Diagnoses Pulmonary embolism, unspecified chronicity, unspecified pulmonary embolism type, unspecified whether acute cor pulmonale present SOB (shortness of breath) Ricarda Suh MD [facility] Non-Inv Card Lab Procedures Mobile Echo [address] [place] [address] [place] [address] Phone: Fax: Referral ID Status Reason Start Date Expiration Date Visits V isits Requested Authorized [id number] Closed Specialty 12/21/2020 12/21/2021 1 1 Service Requested Reason for Visit Diagnostic Test (Routine) - Closed Specialty Diagnoses / Procedures Referred By Contact Refer red To Contact Cardiology Diagnoses Pulmonary embolism, unspecified chronicity, unspecified pulmonary embolism type, unspecified whether acute cor pulmonale present SOB (shortness of breath) Ricarda Suh MD [facility] Non-Inv Card Lab Procedures Mobile Echo [address] [place] [address] [place] [address] Phone: Fax: Referral ID Status Reason Start Date Expiration Date Visits V isits Requested Authorized [id number] Closed Specialty 12/21/2020 12/21/2021 1 1 Service Requested Encounter Details Date Type Department Care Team Description 12/21/2020 Hospital Encounter Mobile Ricarda Suh Pulabelardoa ry embolism, unspecified chronicity, unspecified pulmonary embolism type, unspecified whether acute cor pulmonale present; Echocardiography SOB (shortness of breath) [facility] [address] [place] [phone] Social History Tobacco Use Types Packs/Day Years Used Date Unknown If Ever Smoked Sex Assigned at Date Recorded Not on file documented as of this encounter Medications at Time of Discharge Medication Sig Dispensed Refills Start Date End Date DULoxetine (CYMBALTA) 60 mg Take 60 mg by mouth 0 capsule daily. buPROPion (WELLBUTRIN XL) Take 300 mg by mouth 0 300 mg 24 hr tablet every morning. clonAZEpam (KLONOPIN) 0.5 Take 0.5-1 mg by 0 mg disintegrating tablet mouth 2 times daily as needed. Psyllium (METAMUCIL) 1.7 g Take 1-2 Wafers by 0 Wafr mouth. Kimberly-3 Fatty Acids-Fish Take 1 capsule by 0 Oil (FISH OIL) 360-1,200 mg mouth. Cap documented as of this encounter Plan of Treatment Not on filedocumented as of this encounter Procedures Procedure Name Priority Date/Time Associated Comments Diagnosis ECHOCARDIOGRAM COMPLETE Routine 12/21/2020 4:19 Pulmonary embo lism, Results for this PM EDT unspecified procedure are i n chronicity, the results unspecified section. pulmonary embolism type, unspecified whether acute cor pulmonale presen t SOB (shortness of breath) documented in this encounter Results ECHOCARDIOGRAM COMPLETE (12/21/2020 4:19 PM EDT) P athologist Signature EF 55 HEARTLAB SYSTEM Specimen (Source) Anatomical Location Collection Method / Collectio n Time Received Time / Laterality Volume 12/21/2020 Narrative HEARTLAB SYSTEM - 12/21/2020 4:36 PM EDT Procedure: ?Transthoracic Echocardiogram Patient: ?Juan Shady B. ? (Age): 1960(60y) Med Rec#: ? [id number] ?Sex: ?M ? Site Loc: ? [facility] ?Ht / Wt: ??185.42(cm)/113. Pt. Loc: ?Echo Lab ?BSA: ?2.37 Study Date: ?? 12/21/2020 ?Pt. Type: Outpatient Tape: ? Referring: JUSTIN Reading: Otto White ??([id number]) Press Tool Maker: PATRICIA Press Tool Maker: PATRICIA Diagnosis: *Shortness of breath (R06.02) Rhythm: ? Sinus SUMMARY: 1. Technically difficult study. 2. The left ventricular chamber size is normal. There is normal global left ventricular systolic function. The quantitative left ventricular ejection fraction by biplane Terrell's m ethod is 55%. There are no left ventricular segmental wall motion abnorm alities. 3. Right ventricular chamber size and sy stolic function are within normal limits. The estimated pulmonary a rtery systolic pressure is 20 mmHg. 4. There is aortic valve sclerosis witho ut stenosis. Mild (1+/4+) aortic valve regurgitation is present. 5. 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 There is mild dilatation of the aortic root (3 .8 cm). 6. See remainder of report for additiona l findings. There is no prior study for comparison. Findings ? : Study Quality: ? Adequate Left Ventricle: ? The left ventricul ar chamber size is normal. ?Left ventricular wall thickness is normal. ?No ventricular septal defect is vi sualized. ?There is normal global left ventri cular systolic function. ?The quantitative left ventricular ejection fraction by biplane Terrell's method is 55%. ?There are no left ventricular segm ental wall motion abnormalities. ?The left ventricular diastolic anabela ling pattern is consistent with impaired LV relaxation. ?Doppler assessment is consistent w ith normal left sided filling pressure. Left Atrium: ? The left atrium is no rmal in size. ?No atrial septal defect is visuali zed. Right Ventricle: ? Right ventricular chamber size, wall thickness, and systolic function are within normal limi ts. ?No pulmonary hypertension is noted . ?The estimated pulmonary artery sys tolic pressure is 20 mmHg. ?The estimated right atrial pressur e is 3 mmHg. Right Atrium: ? The right atrium elsie ears normal. Aortic Valve: ? The aortic valve is tricuspid. ?The aortic valve leaflets are mode rately thickened. ?Mild aortic leaflet calcification is visualized. ?There is aortic annular calcificat ion. ?There is no evidence of aortic will ve stenosis. ?Mild (1+/4+) aortic valve regurgit ation is present. Mitral Valve: ? There is mitral genesis lar calcification. ?There is no evidence of mitral lev nosis. ?There is trace mitral regurgitatio n present. Tricuspid Valve: ? The tricuspid will ve appears normal in structure and function. ?There is no tricuspid valve stenos is. ?There is trace tricuspid regurgita tion present. Pulmonic Valve: ? The pulmonic valve appears normal in structure and function. ?There is no pulmonic stenosis pres ent. ?There is trace pulmonic regurgitat ion present. Pericardium: ? No pericardial fat pa d is visualized. Aorta: ? There is mild dilatation of the aortic root.3.8 cm ?There is moderate dilatation of th e ascending aorta. ?The aortic arch is normal in size. Venous: ? The inferior vena cava elsie ears normal in size. ?There is a greater than 50% respir atory change in the inferior vena cava dimension. Misc: ? Technically difficult study. ?See remainder of report for additi onal findings. Chambers 2D ?Value ?Units (Range) ? IVSd (2D) ? 0.92 ? cm ? LVPWd (2D) ?0.91 ? cm ? IVS:LVPW ratio (2D) 1.01 ? ratio ? LVIDd (2D) ?4.55 ? cm ? LVIDs (2D) ?3.2 ?cm ? LV FS (2D) ?29.62 ?% ? EF Teichholz (2D) ?? 56.76 ?% ? Ascending Ao ?4.54 ? cm (2 - 3.5) ? Volumes/Mass ?Value ?Units (Range) ? LA ESV BP (A/L) inde17.63 ? ml/m2 ? LV ESV SP 4CH (MOD) 56.57 ? ml ? LV ESV SP 2CH (MOD) 69.07 ? ml ? LV EDV BP ? 143.84 ? ml ? LV ESV BP ? 64.06 ?ml ? BP EF (MOD) ? 55.46 ?% ? Diastolic/Systolic Function ?Value ?Units (Range) ? MV E-wave Vmax ?0.64 ? m/sec ? MV deceleration fftx944.14 ? m sec ? MV A-wave Vmax ?0.7 ?m/sec ? MV E:A ratio ?0.9 ?ratio ? LV septal e' Vmax ?? 0.08 ? m/sec ? LV lateral e' Vmax ??0.09 ? m/sec ? LV E:e' septal ratio8.13 ? ratio ? LV E:e' lateral rati6.91 ? ratio ? Aortic Valve ?Value ?Units (Range) ? AV Vmax ? 2.07 ? m/sec ? AV VTI ?47.01 ?cm ? AV peak gradient ?17.07 ?mmHg ? AV mean gradient ?10.85 ?mmHg ? LVOT diameter ? 2.34 ? cm ? LVOT Vmax ? 1.23 ? m/sec ? LVOT VTI ?22.87 ?cm ? CO LVOT ? 7.53 ? l/min ? CIRO (continuity Vmax2.56 ? cm2 ? CIRO (continuity Vmax1.08 ? cm2/m2 ? CIRO (continuity VTI)0.89 ? cm2/m2 ? AR PHT ?591.25 ? msec ? Mitral Valve ?Value ?Units (Range) ? MV VTI ?16.99 ?cm ? MV annulus VTI ?20.66 ?cm ? MV PHT ?77.47 ?msec ? MVA (PHT) ? 2.84 ? cm2 ? Tricuspid Valve ?Value ?Units (Range) ? TR Vmax ? 2.08 ? m/sec ? TR peak gradient ?17.27 ?mmHg ? RAP ? 3 ?mmHg ? RVSP ?20 ? mmHg ? Pulmonic Valve/Qp:Qs ?Value ?Units (Range) ? PV Vmax ? 0.71 ? m/sec ? PV VTI ?14.01 ?cm ? PV peak gradient ?2.04 ? mmHg ? PV mean gradient ?1.3 ?mmHg ? RVOT Vmax ? 0.52 ? m/sec ? RVOT VTI ?9.94 ? cm ? RVOT peak gradient ??1.07 ? mmHg ? PV acceleration time41.44 ? msec ? PV ejection time ?252.78 ? msec ? PV AT:ET ?0.16 ? ratio ? This report has been electronically sign ed by: _ Otto White MD ? 12/21/2020 16:35 :43 Images reviewed and interpretation verif ied [facility] Cardiac Ultrasound Laboratory Procedure Note Otto White MD - 12/21/2020Formattin g of this note might be different from the original. Procedure: Transthoracic Echocardiogram Patient: Juan WESTBROOK(Age): [birth year](60y) Med Rec#: [id number] Sex: M [place] [facility] / Wt: 185.42(cm)/113. Pt. Loc: Echo Lab BSA: 2.37 Study Date: 12/21/2020 Pt. Type: Outpati ent Tape: [facility] Reading: Otto White ([id number]) Press Tool Maker: PATRICIA Press Tool Maker: PATRICIA Diagnosis: *Shortness of breath (R06.02) Rhythm: Sinus SUMMARY: 1. Technically difficult study. 2. The left ventricular chamber size is normal. There is normal global left ventricular systolic function. The quantitative left ventricular ejection fraction by biplane Terrell's m ethod is 55%. There are no left ventricular segmental wall motion abnorm alities. 3. Right ventricular chamber size and sy stolic function are within normal limits. The estimated pulmonary a rtery systolic pressure is 20 mmHg. 4. There is aortic valve sclerosis witho ut stenosis. Mild (1+/4+) aortic valve regurgitation is present. 5. 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 There is mild dilatation of the aortic root (3 .8 cm). 6. See remainder of report for additiona l findings. There is no prior study for comparison. Findings : Study Quality: Adequate Left Ventricle: The left ventricular joey mber size is normal. Left ventricular wall thickness is norm al. No ventricular septal defect is visuali zed. There is normal global left ventricular systolic function. The quantitative left ventricular eject ion fraction by biplane Terrell's method is 55%. There are no left ventricular segmental wall motion abnormalities. The left ventricular diastolic filling pattern is consistent with impaired LV relaxation. Doppler assessment is consistent with n ormal left sided filling pressure. Left Atrium: The left atrium is normal i n size. No atrial septal defect is visualized. Right Ventricle: Right ventricular chamb er size, wall thickness, and systolic function are within normal limi ts. No pulmonary hypertension is noted. The estimated pulmonary artery systolic pressure is 20 mmHg. The estimated right atrial pressure is 3 mmHg. Right Atrium: The right atrium appears n ormal. Aortic Valve: The aortic valve is tricus pid. The aortic valve leaflets are moderatel y thickened. Mild aortic leaflet calcification is vi sualized. There is aortic annular calcification. There is no evidence of aortic valve st enosis. Mild (1+/4+) aortic valve regurgitation is present. Mitral Valve: There is mitral annular ca lcification. There is no evidence of mitral stenosis . There is trace mitral regurgitation pre sent. Tricuspid Valve: The tricuspid valve elsie ears normal in structure and function. There is no tricuspid valve stenosis. There is trace tricuspid regurgitation present. Pulmonic Valve: The pulmonic valve appea rs normal in structure and function. There is no pulmonic stenosis present. There is trace pulmonic regurgitation p resent. Pericardium: No pericardial fat pad is v isualized. Aorta: There is mild dilatation of the a ortic root.3.8 cm There is moderate dilatation of the asc ending aorta. The aortic arch is normal in size. Venous: The inferior vena cava appears n ormal in size. There is a greater than 50% respiratory change in the inferior vena cava dimension. Misc: Technically difficult study. See remainder of report for additional findings. Chambers 2D Value Units (Range) IVSd (2D) 0.92 cm LVPWd (2D) 0.91 cm IVS:LVPW ratio (2D) 1.01 ratio LVIDd (2D) 4.55 cm LVIDs (2D) 3.2 cm LV FS (2D) 29.62 % EF Teichholz (2D) 56.76 % Ascending Ao 4.54 cm (2 - 3.5) Volumes/Mass Value Units (Range) LA ESV BP (A/L) inde17.63 ml/m2 LV ESV SP 4CH (MOD) 56.57 ml LV ESV SP 2CH (MOD) 69.07 ml LV EDV BP 143.84 ml LV ESV BP 64.06 ml BP EF (MOD) 55.46 % Diastolic/Systolic Function Value Units (Range) MV E-wave Vmax 0.64 m/sec MV deceleration akox975.14 msec MV A-wave Vmax 0.7 m/sec MV E:A ratio 0.9 ratio LV septal e' Vmax 0.08 m/sec LV lateral e' Vmax 0.09 m/sec LV E:e' septal ratio8.13 ratio LV E:e' lateral rati6.91 ratio Aortic Valve Value Units (Range) AV Vmax 2.07 m/sec AV VTI 47.01 cm AV peak gradient 17.07 mmHg AV mean gradient 10.85 mmHg LVOT diameter 2.34 cm LVOT Vmax 1.23 m/sec LVOT VTI 22.87 cm CO LVOT 7.53 l/min CIRO (continuity Vmax2.56 cm2 CIRO (continuity Vmax1.08 cm2/m2 CIRO (continuity VTI)0.89 cm2/m2 AR PHT 591.25 msec Mitral Valve Value Units (Range) MV VTI 16.99 cm MV annulus VTI 20.66 cm MV PHT 77.47 msec MVA (PHT) 2.84 cm2 Tricuspid Valve Value Units (Range) TR Vmax 2.08 m/sec TR peak gradient 17.27 mmHg RAP 3 mmHg RVSP 20 mmHg Pulmonic Valve/Qp:Qs Value Units (Range) PV Vmax 0.71 m/sec PV VTI 14.01 cm PV peak gradient 2.04 mmHg PV mean gradient 1.3 mmHg RVOT Vmax 0.52 m/sec RVOT VTI 9.94 cm RVOT peak gradient 1.07 mmHg PV acceleration time41.44 msec PV ejection time 252.78 msec PV AT:ET 0.16 ratio This report has been electronically sign ed by: _ Otto White MD 12/21/2020 16:35:43 Images reviewed and interpretation marco a العلي [facility] Cardiac Ultrasound Laboratory Ricarda Suh MD ECHO ORDERABLES Performing Organization Address City/State/ZIP Code Phon e Number [facility] documented in this encounter Visit Diagnoses Diagnosis Pulmonary embolism, unspecified chronici ty, unspecified pulmonary embolism type, unspecified whether acute cor pulmonale present SOB (shortness of breath) Shortness of breath documented in this encounter Care Teams Linotypist Relationship Specialty Start Date End Date Dyllan Lozada MD PCP - General 03/05/13 01/01/21 [address] [place] [address] documented as of this encounter
--- OUTSIDE RECORDS SUMMARY | 2021-09-22 00:34 | XMS_ITS | Encounter Summary ---
:1960 Author Organization [facility] [place] [address] Care Team Providers Name Role Phone Dyllan Lozada MD Primary Care Provider Encounter Details Date Type Department Care Team Description 12/18/2020 Ancillary Procedure Radiology Library at Linnea Lozada [facility] [place] [address] [address] [place] [address] [phone] Social History Tobacco Use Types Packs/Day Years Used Date Unknown If Ever Smoked Sex Assigned at Date Recorded Not on file documented as of this encounter Plan of Treatment Not on filedocumented as of this encounter Procedures Procedure Name Priority Date/Time Associated Comments Diagnosis FILM LIBRARY STORAGE Routine 12/18/2020 12:00 AM Results for this ONLY ULTRASOUND EDT procedure ar e in STUDY the results section. documented in this encounter Results Film Library- Storage Only Ultrasound Study (12/18/2020 12:00 AM EDT) Specimen (Source) Anatomical Location Collection Method / Collectio n Time Received Time / Laterality Volume Narrative LISA - 12/24/2020 1:02 PM EDT This exam is auto-finalizing. It's purpo se is for storage only. Dyllan Lozada MD IMG FILM LIBRARY ORDERABLES Performing Organization Address City/State/ZIP Code Phon e Number [place], [place] documented in this encounter Visit Diagnoses Not on filedocumented in this encounter Care Teams Compensation Consulting Manager Relationship Specialty Start Date End Date Dyllan Lozada MD PCP - General 03/05/13 01/01/21 [address] [place] [address] documented as of this encounter
--- OUTSIDE RECORDS SUMMARY | 2021-09-22 00:34 | XMS_ITS | Encounter Summary ---
:1960 Author Organization [facility] [address] Care Team Providers Name Role Phone Dyllan Lozada MD Primary Care Provider Encounter Details Date Type Department Care Team Description 03/05/2013 Office Visit Dermatology at Rishi Walker Other s eborrheic keratosis (Primary Dx); Aneudy MONTANEZ Nevus [address] [facility] Faisal B DERMATOLOGY [place], [place] [id number] [phone] Social History Tobacco Use Types Packs/Day Years Used Date Never Assessed Sex Assigned at Date Recorded Not on file documented as of this encounter Progress Notes Rishi Walker MD - 03/05/2013 11:48 AM EST Problem: Left forehead lesion. Shady is a 52-year-old gentleman who for at least six months has had a nonhealing, crusting, scabbing lesion on the left forehead. There is a family history of malignant melanoma in a grandmother. He spent the last three [place] [facility] [place] [facility]. He does try to use sunscreen. 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 The remainder of the sun-exposed skin examination is benign. Also, examination of back, chest, and arms is benign. He has a seborrheic keratosis on the left anterior arm. Assessment and Plan: 1. Rule out BCCA/SCCA, left forehead. a. After obtaining informed consent, site was anesthetized and shave biopsy obtained from the site. b. No C and D, no therapeutic procedure carried out; biopsy is purely diagnostic. c. Will notify patient of biopsy results within a week and plan appropriate either surgical or topical imiquimod cream therapy as appropriate. COPY: Lamont Call documented in this encounter Procedure Notes Provider, Scanning - 03/14/2013 9:12 AM ESTAssociated Order(s): SCAN DOC: SURGICAL PATHOLOGY documented in this encounter Plan of Treatment Not on filedocumented as of this encounter Procedures Procedure Name Priority Date/Time Associated Diagnosis Comme nts SURGICAL PATHOLOGY 03/14/2013 9:12 AM Res ults for this SCAN EST procedure are i n the results section. documented in this encounter Results SCAN DOC: SURGICAL PATHOLOGY (03/14/2013 9:12 AM EST) Narrative 03/14/2013 9:12 AM EST Procedure Note Provider, Scanning - 03/14/2013 9:12 AM EST Scanning Provider MEDIA MGR SCAN EXT ORDR/RSLT documented in this encounter Visit Diagnoses Diagnosis Other seborrheic keratosis - Primary Nevus Benign neoplasm of skin, site unspecifie d documented in this encounter Care Teams Profile Mill Operator Tape Control Relationship Specialty Start Date End Date Dyllan Lozada MD PCP - General 03/05/13 01/01/21 [address] [place] [address] documented as of this encounter
--- OUTSIDE RECORDS SUMMARY | 2021-09-22 00:35 | XMS_ITS ---
:1960 Author Care Team Providers Name Role Phone Jude Martínez Primary Care Provider Unavailable Allergies Code Code System Name Reaction Severity Status Onset NKDA ? Medications Name Status Start Date Stop Date ? ? azelastine 137 mcg (0.1 %) nasal spray aerosol Completed ? 05/27/2020 [place] 2 sprays twice a day by intranasal route. azithromycin 250 mg tablet Completed ? 02/20 TAKE 2 TABLETS BY MOUTH TODAY, THEN TAKE 1 TABLET DAILY FOR 4 D AYS benzonatate 100 mg capsule Completed ? 02/20 TAKE 1 CAPSULE BY MOUTH THREE TIMES A DAY FOR 7 DAYS dexamethasone 4 mg tablet Completed ? 2020 Take 1 tablet twice a day by oral route for 5 days. duloxetine 40 mg capsule,delayed release Active ? Not available TAKE 1 CAPSULE BY MOUTH EVERY DAY Flucelvax Quad (PF) 60 mcg (15 mcg x 4)/0.5 mL IM syri nge Completed ? 02/21/2020 PHARMACY ADMINISTERED levofloxacin 500 mg tablet Completed ? 05/27 Take 1 tablet every 24 hours by oral route for 7 days. montelukast 10 mg tablet Active ? Not jakub ilable Take 1 tablet every day by oral route. Problems None recorded. Procedures Date Name Performed by ? 05/20/2020 XR, Chest, 2 View [email or web address] [address] [facility] [address] [place] [address] (Work [address]) 05/20/2020 XR, Chest [facility] [address] [place] [address] (Work Place) Notes: Denies Results Lab Results Date Name Specimen Result Interpretation Description Value Range Status Address ? 05/27/2020 Urinalysis, Urine ? Leukocytes Negative ? ? [email or web address]_ucc: [place] [address] [facility] [address], [place] ? ? Urine ? Nitrates negative ? ? Milton [email or web address]: [address] [facility] [address], [place] ? ? Urine ? Urobilinogen 0.2 ? ? Rajan laureano_[email or web address]: [address] [facility] [address], [place] ? ? Urine ? Protein 30 ? ? Kinza_ [facility]: [address] [facility] [address], [place] ? ? Urine ? Ph 5.0 ? ? Kinza_[address]: [address] [facility] [address], [place] ? ? Urine ? Blood Negative ? ? Kinza_ [facility]: [address] [facility] [address], [place] ? ? Urine ? Specific 1.025 ? ? Kinza _[facility]: [place] [address] [facility] [address], [place] ? ? Urine ? Ketone Negative ? ? Kinza _[facility]: [address] [facility] [address], [place] ? ? Urine ? Bilirubin Negative ? ? Janice nelsonn_[email or web address]: [address] [facility] [address], [place] ? ? Urine ? Glucose Negative ? ? Cathy n_[facility]: [address] [facility] [address], [place] ? ? Urine ? Test Strip [id number] ? ? Milton bullard_[facility]: [address] [facility] [address], [place] ? ? Urine ? Test Strip ? ? Ada garrett_[email or web address]: Expiration 1 [address] [facility] Date [address], [place] Past Encounters 05/27/2020 Adult Health Examination Shane Tucker MD: [address] [facility] [address], [place] [address], Ph. 05/20/2020 Exposure to SARS-CoV-2; Chronic Cough; C hronic Sinusitis; Allergic Rhinitis Jude Martínez, DO: [address] [facility] [address], [place] [address], Ph. Social History Tobacco Smoking Status Former Smoker Notes: stopped 40 years ago Vaccine List None recorded. Plan of Care Reminders Provider Appointments None recorded. ? ? Lab None recorded. ? ? Referral None recorded. ? ? Procedures None recorded. ? ? Surgeries None recorded. ? ? Imaging None recorded. ? ? Vitals 05/27/2020 12:15PM Occ Med Complex Height Weight BMI Blood Pressure 6 ft 1 in 253 lbs 16 oz 33.5 kg/m2 129/87 mm[Hg] 05/20/2020 05:12PM Urgent Care Height Weight BMI Blood Pressure 6 ft 1 in 259 lbs 9.6 oz 34.2 kg/m2 02/21/2020 03:08PM Urgent Care Height Weight BMI Blood Pressure 6 ft 1 in 240 lbs 31.7 kg/m2 158/86 mm[Hg]
--- OUTSIDE RECORDS SUMMARY | 2021-09-22 00:35 | XMS_ITS | Encounter Summary ---
:1960 Author Organization [facility] Address [address] [place] [address] Care Team Providers Name Role Phone Radha Drummond JAMEEL Primary Care Provider Reason for Visit Reason Onset Date Comments Prior Auth, Medication 08/18/2021 Encounter Details Date Type Department Care Team Description 08/18/2021 Telephone [facility] Cancer Center Uyen Raines Pri or Auth, Medication Hematology & Oncology CLERICAL INVESTIGATOR - [facility] [address] [address] [facility] [place], [place] [phone] (Wo rk) Social History Tobacco Use Types Packs/Day Years Used Date Former Smoker Quit: 01/06/19 96 Smokeless Tobacco: Never Used Alcohol Use Standard Drinks/Week Comments Not Currently 0 (1 standard drink = 0.6 oz pure alcoho l) Sex Assigned at Date Recorded Male 05/18/2021 22:10 EDT documented as of this encounter Miscellaneous Notes Telephone Encounter - Elisabet Atkins RN - 08/18/2021 3513 EDT Left message that pt should see pulm first, as CT will not be approved because chest xray showed a reason for shortness of breath. Sent my chart message as well with info. elephone Encounter - [place], Paula - 08/18/2021 1249 EDT Patient calling to inform [employer] called to inform him that the provider was no longer going to pursue appeal for imaging. [employer] states not info was provided that's why he was denied. Requesting a call from the nurse documented in this encounter Plan of Treatment Upcoming Encounters Date Type Specialty Care Team Description 10/06/2021 Telemedicine Hematology and Oncology Uyen Gabriel, CLERICAL INVESTIGATOR 111 [facility], [facility], Level [address] [place], [place] [phone] (Wo rk) documented as of this encounter Visit Diagnoses Not on filedocumented in this encounter Care Teams Plunket Nurse Relationship Specialty Start Date End Date Radha Drummond FNP PCP - General 07/08/21 [address] [place] [address] documented as of this encounter
--- OUTSIDE RECORDS SUMMARY | 2021-09-22 00:35 | XMS_ITS | Encounter Summary ---
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) Chrissy Damon MD Procedures PULMONARY FUNCTION TESTING 111 [facility], [address] 5 [place] [address] Referral ID Status Reason Start Date Expiration Date Visits Requ ested Visits Authorized [id number] Closed 07/28/2021 1 1 Encounter Details Date Type Department Care Team Description 07/28/2021 Orders Only [facility] Radha Drummond FNP Chronic saddle Pulmonology & Critical [address] pul monary embolism Care - [facility] with acute cor [address] [place], [place] pulmonale (HCC) [place] [id number] (Primary Dx) [phone] Social History Tobacco Use Types Packs/Day Years Used Date Former Smoker Quit: 01/06/19 96 Smokeless Tobacco: Never Used Alcohol Use Standard Drinks/Week Comments Not Currently 0 (1 standard drink = 0.6 oz pure alcoho l) Sex Assigned at Date Recorded Male 05/18/2021 22:10 EDT documented as of this encounter Progress Notes dEwin Nix RT - 07/28/2021 1605 EDT R: faxed request for PCP to place order for ECHO to evaluate clot hemodynamics. documented in this encounter Plan of Treatment Upcoming Encounters Date Type Specialty Care Team Description 10/06/2021 Telemedicine Hematology and Oncology Uyen Gabriel, SALES AGENT [employer] 111 [facility], [facility], [address] [place], [place] [phone] (Wo rk) Scheduled Orders Name Type Priority Associated Diagnoses Order S chedule PULMONARY FUNCTION PFT Routine Chronic saddle pulmona ry 1 Occurrences starting TESTING embolism with acute cor 07/05 until pulmonale (HCC) 01/28/2023 documented as of this encounter Visit Diagnoses Diagnosis Chronic saddle pulmonary embolism with a cute cor pulmonale (HCC) - Primary documented in this encounter Care Teams Manager Research Development Relationship Specialty Start Date End Date Radha Drummond FNP PCP - General 07/08/21 [address] [place] [address] documented as of this encounter
--- OUTSIDE RECORDS SUMMARY | 2021-09-22 00:35 | XMS_ITS | Encounter Summary ---
:1960 Author Organization [facility] Address [address] [place] [address] Care Team Providers Name Role Phone Unavailable Primary Care Provider Unavailable Encounter Details Date Type Department Care Team Description 03/02/2004 Results Only [facility] - Malena Villalba, Chr istopher, conversion DO 111 [facility] [address] [facility] [address] [place], [place] [phone] [place] [address] (Wo rk) Social History Tobacco Use Types Packs/Day Years Used Date Never Assessed Sex Assigned at Date Recorded Male 05/18/2021 22:10 EDT documented as of this encounter Plan of Treatment Upcoming Encounters Date Type Specialty Care Team Description 10/06/2021 Telemedicine Hematology and Oncology Uyen Gabriel, SU [address] [place] [facility], [facility] 2 [place], [place] [phone] (Wo rk) documented as of this encounter Procedures Procedure Name Priority Date/Time Associated Diagnosis Comme nts SURGICAL PATHOLOGY Routine 03/02/2004 0:00 EST Re sults for this procedure are i n the results section. documented in this encounter Results SURGICAL PATHOLOGY (03/02/2004 0:00 EST) Pathology Report: SURGICAL PATHOLOGY REPORT IBRAHIMA PRAJAPATI Reports generated via electronic interface contain waldemar ginal data; LAB however they are lacking the format of the original re port. Caution should be taken when reading/interpreting unfo rmatted reports. Name: ? GISELE MARTINEZ ? Accession #: ? [id number] ? : ? 1960 (Age: 43) ??M ? Collect Date: ? 03/02/2004 ? Location: ? [facility] ? Receive Date: ? 004 ? Provider: ASTRID VILLALBA DO Copy to: MONAE FRAGA PROVIDER RELATIONS ADVOCATE ? Final Pathologic Diagnosis: ? Anal fissure, biopsy: - ??Granulation tissue with acute and chronic inflamma tion. Document reviewed and electronically signed by: Doug Ag MD Report ??Date: 03/08/2004 17:19 By the signature above, the attending physician certif ies that he/she has personally conducted a gross and/or microscopic examin ation of the described specimens and rendered or confirmed the above diagnosi s. Specimen(s) Received: ? Bx anal fissure Clinical History: ? Anal fissure Gross Description: ? Received in formalin labelled Geeta and bx anal fissure is a wright-pink 0.2 x 0.2 x 0.2 cm soft tiss ue fragment. ??The specimen is entirely submitted in one cassette. ??(Antonio Barnes/carol ?? End of Report Specimen Performing Organization Address City/State/ZIP Code Phon e Number [facility] [address] [place] [address] SERVICES [facility] [address] [place] [address] documented in this encounter Visit Diagnoses Not on filedocumented in this encounter
--- OUTSIDE RECORDS SUMMARY | 2021-09-22 00:35 | XMS_ITS | Encounter Summary ---
:1960 Author Organization [facility] Address [address] [place] [address] Care Team Providers Name Role Phone Radha Drummond JAMEEL Primary Care Provider Reason for Visit Reason Onset Date Comments Medication Questions 07/12/2021 Encounter Details Date Type Department Care Team Description 07/12/2021 Telephone [facility] Cancer Center Uyen Raines, [place] ication Questions Hematology & Oncology DISCHARGE DOOR OPERATOR - [address] [address] [address], [place] [address] (Wo rk) Social History Tobacco Use Types Packs/Day Years Used Date Former Smoker Quit: 01/06/19 96 Smokeless Tobacco: Never Used Alcohol Use Standard Drinks/Week Comments Not Currently 0 (1 standard drink = 0.6 oz pure alcoho l) Sex Assigned at Date Recorded Male 05/18/2021 22:10 EDT documented as of this encounter Miscellaneous Notes Telephone Encounter - Elisabet Atkins RN - 07/14/2021 1118 EDT Left message that dose of 2.5mg was verified with Uyen Raines. This is the appropriate dose at this time. Informed him that CT was denied by insurance, and we will look into getting this approved and scheduled. elephone Encounter - Uyen Raines NP - 07/14/2021 1531 EDT So sorry just getting to this I didn't change my mind about dose reducing his Eliquis, not sure what that was about. Starla, do youremember that?? As for the CT, I am happy to do a peer to peer versus reordering with additional info. Please let patient know it was denied and that I will look into it Monday. Thank you!! Uyen Telephone Encounter - Elisabet Atkins RN - 07/13/2021 1437 EDT Left message that we will check status of CT and check in with Uyen about Eliquis dose. elephone Encounter - Peter Diego - 07/12/2021 1440 EDT Patient is calling because Uyen Shepherdjasmynmegan was going to put him on a lower dosage of Eliquis, but then changed her mind. Pharmacy called letting him know that the lower dose was available for molded goods spot picker. Wondering if this was a mix up, or the provider changed her mind. Please advise, today if possible sohe can adjust accordingly for medication if needed. Patient was also asking about the status of scheduling CT Scan. Please advise documented in this encounter Plan of Treatment Upcoming Encounters Date Type Specialty Care Team Description 10/06/2021 Telemedicine Hematology and Oncology Uyen Gabriel NP [address] [place] [facility], [facility], [facility] 2 [place], [place] [address] (Wo rk) documented as of this encounter Visit Diagnoses Not on filedocumented in this encounter Care Teams Cash Teller Relationship Specialty Start Date End Date Young, Radha, SHAFT HEADMAN PCP - General 07/08/21 [address] [place] [address] documented as of this encounter
--- OUTSIDE RECORDS SUMMARY | 2021-09-22 00:35 | XMS_ITS | Encounter Summary ---
:1960 Author Organization [facility] Address [address] [place] [address] Care Team Providers Name Role Phone Radha Drummond JAMEEL Primary Care Provider Reason for Visit Reason Onset Date Comments Prior Auth, Other (i.e. radiology, etc.) 07/21/[address] Orders (Non Pre-visit) 07/21/2021 Encounter Details Date Type Department Care Team Description 07/21/2021 Telephone [facility] Uyen Raines Pri or Cristopher, Other Hematology & Oncology INTERNET RESEARCHER (i.e. radiology, etc.) - [address] (chest ct); Orders [address] [place] [address] (Non Pre-visit) [place] [address] [address], [place] [phone] (Wo rk) Social History Tobacco Use Types Packs/Day Years Used Date Former Smoker Quit: 01/06/19 96 Smokeless Tobacco: Never Used Alcohol Use Standard Drinks/Week Comments Not Currently 0 (1 standard drink = 0.6 oz pure alcoho l) Sex Assigned at Date Recorded Male 05/18/2021 22:10 EDT documented as of this encounter Miscellaneous Notes Telephone Encounter - Uyen Raines INTERNET RESEARCHER - 07/28/2021 2697 EDT LM for patient regarding CXR results. Given finding of hyperinflation, I let him know I would proceed with a referral to pulmonary. I am still awaiting a call back from his insurance provider regardingCT chest PE protocol which I am still interested in pursuing both to assess for chronic PE as well as further assess pulm nodule. E Parenteau elephone Encounter - Paula Laureano - 07/22/2021 1434 EDT Is it okay to do CT without contrast, if not they will have at end of August. Please call back to advise. elephone Encounter - Mercedes Reyes - 07/21/2021 0952 EDT Samanta calling to ask if the provider would be willing to do a Peer to Peer with [employer] to try to getChest CT's code#[id number] Auth# [id number] [employer] P-P # [phone] signed by Mercedes Reyes at 07/21/2021 9:55 EDTdocumented in this encounter Plan of Treatment Upcoming Encounters Date Type Specialty Care Team Description 10/06/2021 Telemedicine Hematology and Oncology Uyen Gabriel NP 111 [facility], [facility], [address] [place], [place] [phone] (Wo rk) documented as of this encounter Visit Diagnoses Not on filedocumented in this encounter Care Teams Oil Well Gun Perforator Operator Relationship Specialty Start Date End Date Radha Drummond FNP PCP - General 07/08/21 [address] [facility] [place] [place], [place] [address] documented as of this encounter
--- OUTSIDE RECORDS SUMMARY | 2021-09-22 00:35 | XMS_ITS | Encounter Summary ---
:1960 Author Organization [facility] Address [address] [place] [address] Care Team Providers Name Role Phone Unknown, Provider Primary Care Provider Radha Drummond Primary Care Provider Encounter Details Date Type Department Care Team Description 12/18/2020 Lab Requisition [facility] Outr Resulting Lab, Pathology & Laboratory Provider [facility] [address] [place], [place] [phone] Social History Tobacco Use Types Packs/Day Years Used Date Never Assessed Sex Assigned at Date Recorded Male 05/18/2021 22:10 EDT documented as of this encounter Plan of Treatment Upcoming Encounters Date Type Specialty Care Team Description 10/06/2021 Telemedicine Hematology and Oncology Uyen Gabriel NP 111 [facility], [facility] 2 [place], [place] [address] (Wo rk) documented as of this encounter Procedures Procedure Name Priority Date/Time Associated Comments Diagnosis PSA TOTAL, Routine 12/17/2020 17:00 Results for this DIAGNOSTIC EDT procedure are i n the results section. documented in this encounter Results PSA TOTAL, DIAGNOSTIC (12/17/2020 17:00 EDT) Pathologist Sig nature PSA 0.7 0.0 - 4.5 ng/mL [facility] Specimen Blood - Venous blood (substance) Narrative [facility] - 12/18/2020 18:05 EDT NOTE: Serum PSA concentration should not be in terpreted as absolute evidence for the presence or absence of malignant disease. Assayed on Siemens [employer] Championship[employer] Stream5aur XPT usi ng chemiluminescent technology.??Values obtained by using different assay methods cannot be used interchangeably. Performing Organization Address City/State/ZIP Code Phon e Number [facility] [address] [place] [address] SERVICES documented in this encounter Visit Diagnoses Not on filedocumented in this encounter Care Teams Hospice Team Lead Relationship Specialty Start Date End Date Unknown, Provider, PCP - General 01/26/15 07/07/21 Radha Drummond FNP PCP - General 07/08/21 [address] [place], [place] [phone] documented as of this encounter
--- OUTSIDE RECORDS SUMMARY | 2021-09-22 00:35 | XMS_ITS | Encounter Summary ---
:1960 Author Organization [facility] Address [address] [place] [address] Care Team Providers Name Role Phone Unknown, Provider Primary Care Provider Reason for Visit (Routine/Next Available) - Receiving Office to Obtain Authorization Specialty Diagnoses / Procedures Referred By Contact Refer red To Contact Procedures Unknown, Provider, CT OUTSIDE IMAGES CHEST Phone: Referral ID Status Reason Start Expiration Visits Visits Date Date Requested Authorized [id number] Receiving Office 1 1 to Obtain 1 Authorization Encounter Details Date Type Department Care Team Description 12/17/2020 Hospital Encounter [facility] Secondary Reads [place] Social History Tobacco Use Types Packs/Day Years Used Date Never Assessed Sex Assigned at Date Recorded Male 05/18/2021 22:10 EDT documented as of this encounter Medications at Time of Discharge Medication Sig Dispensed Refills Start Date End Date DULoxetine (CYMBALTA) 20 40 mg. 0 12/10/2020 mg delayed release capsule rOPINIRole (REQUIP) 0.25 Take 0.25 mg by mouth 0 12/17/2020 07/08/2021 mg tabletIndications: at bedtime as needed. restless leg syndrome documented as of this encounter Discharge Disposition Disposition Code Departure Means Destination Home or Self Care documented in this encounter Plan of Treatment Upcoming Encounters Date Type Specialty Care Team Description 10/06/2021 Telemedicine Hematology and Oncology Uyen Gabriel NP [address] [place] [address] [facility], [facility], Level [address] [place], [place] [phone] (Wo rk) documented as of this encounter Procedures Procedure Name Priority Date/Time Associated Diagnosis Comme nts CT OUTSIDE IMAGES Routine 12/24/2020 13:02 Result s for this CHEST EDT procedure are i n the results section. documented in this encounter Results CT OUTSIDE IMAGES CHEST (12/24/2020 13:02 EDT) Specimen Narrative 12/24/2020 13:02 EDT This is a non-reportable exam. documented in this encounter Visit Diagnoses Not on filedocumented in this encounter Care Teams Stab Setter And Driller Relationship Specialty Start Date End Date Unknown, Provider, PCP - General 01/26/15 07/07/21 documented as of this encounter
--- OUTSIDE RECORDS SUMMARY | 2021-09-22 00:35 | XMS_ITS | Encounter Summary ---
:1960 Author Organization [facility] Address [address] [place] [address] Care Team Providers Name Role Phone Radha Drummond JAMEEL Primary Care Provider Reason for Referral Consult (See Order Priority) - Receiving Office to Obtain Authorization Specialty Diagnoses / Procedures Referred By Contact Refer red To Contact Pulmonary Disease Diagnoses SOB (shortness of breath) Pulmonary embolism and infarction (HCC-CMS) (HCC) Pulmonary hyperinflation Uyen Raines, Ep5 Pulmonology BUFFING MACHINE OPERATOR 111 [facility] 111 [place], [place] [phone] [place] [address], Main Phone: [place], [address] [place] [address] Referral ID Status Reason Start Expiration Visits Visits Date Date Requested Authorized [id number] Receiving Office Specialty 1 1 to Obtain Services 2 Authorization Required Question Answer Reason for Request: Hx PE with SOB starting arou nd that time. Despite AC, SOB persists. CXR at [facility] sugges ts COPD given finding of hyperinflation. CXR result i n EPIC. Please eval for COPD, CTPE pending approval to assess f or possible CTEPH Encounter Details Date Type Department Care Team Description 07/28/2021 Orders Only [facility] Center Parenteau, Uyen A, SOB (shortness of breath) (Primary Dx); Hematology & BUFFING MACHINE OPERATOR Pulmonary embolism and infarction (HCC-C MS) ([facility]); Oncology - [address] Pulmonary hyperinflation [address] [place] [address] [place], [place] [address] (Wo rk) Social History Tobacco Use Types [...] 10/06/2021 Telemedicine Hematology and Oncology Uyen Gabriel, BUFFING MACHINE OPERATOR 111 [facility], [facility] 2 [place], [place] [address] (Wo rk) Scheduled Referrals Name Type Priority Associated Diagnoses Order S chedule AMB CONS/FOLLOW Outpatient Routine/Next SOB (shortness of Expecte d: UP PULMONARY Referral Available breath) 08/28/2021 Pulmonary embolism (Approxim ate), and infarction Expires: ([facility]) ([facility]) 07/28/2022 Pulmonary hyperinflation documented as of this encounter Visit Diagnoses Diagnosis SOB (shortness of breath) - Primary Shortness of breath Pulmonary embolism and infarction (HCC-C MS) ([facility]) Other pulmonary embolism and infarction Pulmonary hyperinflation Other symptoms involving respiratory sys tem and chest documented in this encounter Care Teams Stars Analytical Lead Relationship Specialty Start Date End Date Radha Drummond FNP PCP - General 07/08/21 [address] [place], [place] [phone] documented as of this encounter
--- OUTSIDE RECORDS SUMMARY | 2021-09-22 00:35 | XMS_ITS | Encounter Summary ---
:1960 Author Organization [facility] Address [address] [place] [address] Care Team Providers Name Role Phone Unknown, Provider Primary Care Provider Reason for Visit Reason Onset Date Comments Appointment Related 01/06/2021 Encounter Details Date Type Department Care Team Description 01/06/2021 Telephone [facility] Center Penelope Raines NP Appointment Related Hematology & Oncology 111 [facility], [facility] 111 [facility], [address] [place] [address] [place], [place] [phone] (Wo rk) Social History Tobacco Use Types Packs/Day Years Used Date Former Smoker Quit: 01/06/19 96 Smokeless Tobacco: Never Used Alcohol Use Standard Drinks/Week Comments Not Currently 0 (1 standard drink = 0.6 oz pure alcoho l) Sex Assigned at Date Recorded Male 05/18/2021 22:10 EDT documented as of this encounter Miscellaneous Notes Telephone Encounter - Yanique Cunningham - 01/06/2021 1820 EDT lmom of 6 month Follow up with same day Ultrasound. 07/12/21 3pm 5th floor Vascular 3:40pm 2nd floor EP Left call back # documented in this encounter Plan of Treatment Upcoming Encounters Date Type Specialty Care Team Description 10/06/2021 Telemedicine Hematology and Oncology Uyen Gabriel, CLOTH BOOKER [address] [place] [address] [facility], [facility], [address] [place], [place] [address] (Wo rk) documented as of this encounter Visit Diagnoses Not on filedocumented in this encounter Care Teams Fruit Or Nut Farmer Relationship Specialty Start Date End Date Unknown, Provider, PCP - General 01/26/15 07/07/21 documented as of this encounter
--- OUTSIDE RECORDS SUMMARY | 2021-09-22 00:35 | XMS_ITS | Encounter Summary ---
:1960 Author Organization [facility] Address [address] [place] [address] Care Team Providers Name Role Phone Radha Drummond JAMEEL Primary Care Provider Reason for Visit Reason Onset Date Comments Appointment Related 07/09/2021 Encounter Details Date Type Department Care Team Description 07/09/2021 Telephone [facility] Cancer Center Penelope Raines NP Appointment Related Hematology & Oncology 111 [facility], [address], [address] [place] [address] [place], [place] [phone] (Wo rk) Social History Tobacco Use Types Packs/Day Years Used Date Former Smoker Quit: 01/06/19 96 Smokeless Tobacco: Never Used Alcohol Use Standard Drinks/Week Comments Not Currently 0 (1 standard drink = 0.6 oz pure alcoho l) Sex Assigned at Date Recorded Male 05/18/2021 22:10 EDT documented as of this encounter Miscellaneous Notes Telephone Encounter - Dipti Levin - 07/09/2021 1056 EDT Called to advise of appt 08/10 with EP & will send CT to [facility] as soon as PA acquired; patient confirmed documented in this encounter Plan of Treatment Upcoming Encounters Date Type Specialty Care Team Description 10/06/2021 Telemedicine Hematology and Oncology Uyen Gabriel, CURB SETTER [address] [place] A venue [facility], [facility], [address] [place], [place] [address] (Wo rk) documented as of this encounter Visit Diagnoses Not on filedocumented in this encounter Care Teams Electric Repair Supervisor Relationship Specialty Start Date End Date Radha Drummond FNP PCP - General 07/08/21 [address] [place] [address] documented as of this encounter
--- OUTSIDE RECORDS SUMMARY | 2021-09-22 00:35 | XMS_ITS | Encounter Summary ---
:1960 Author Organization [facility] Address [address] [place] [address] Care Team Providers Name Role Phone Radha Drummond JAMEEL Primary Care Provider Reason for Visit Reason Onset Date Comments Prior Auth, Other (i.e. radiology, etc.) 08/10/2021 Follow-up 08/13/2021 Encounter Details Date Type Department Care Team Description 08/10/2021 Telephone [facility] Uyen Raines Pri or Cristopher, Other Hematology & Oncology FIRER PORTABLE BOILER (i.e. radiology, - [address] etc.); Follow-up [address] [place] [address] [address], [place] [address] (Wo rk) Social History Tobacco Use Types Packs/Day Years Used Date Former Smoker Quit: 01/06/19 96 Smokeless Tobacco: Never Used Alcohol Use Standard Drinks/Week Comments Not Currently 0 (1 standard drink = 0.6 oz pure alcoho l) Sex Assigned at Date Recorded Male 05/18/2021 22:10 EDT documented as of this encounter Miscellaneous Notes Telephone Encounter - Keira Albarran RN - 08/13/2021 1440 EDT Left message we will not proceed with CT request elephone Encounter - Paula Laureano - 08/13/2021 1321 EDT Samira calling to follow up on CT appeal and Resting Cardiography elephone Encounter - Maik Jauregui - 08/10/2021 1406 EDT Kimberly with [employer] states since the CT [id number] was denied even with peer to peer, will an appeal processbe started. . documented in this encounter Plan of Treatment Upcoming Encounters Date Type Specialty Care Team Description 10/06/2021 Telemedicine Hematology and Oncology Uyen Gabriel, FIRER PORTABLE BOILER [address] [facility], [facility], [address] [place], [place] [address] (Wo rk) documented as of this encounter Visit Diagnoses Not on filedocumented in this encounter Care Teams Communications Lead Relationship Specialty Start Date End Date Radha Drummond FNP PCP - General 07/08/21 [address] [place] [address] documented as of this encounter
--- OUTSIDE RECORDS SUMMARY | 2021-09-22 00:35 | XMS_ITS | Clinical Summary ---
:1960 Author Organization [facility] Address [address] [place] [address] Care Team Providers Name Role Phone Radha Drummond JAMEEL Primary Care Provider Allergies Active Allergy Reactions Severity Noted Date Comments Buspirone 06/11/2013 Other reaction( s): Ringing in ears and anxiety. Medications Medication Sig Dispensed Refills Start Date End Date Status DULoxetine (CYMBALTA) 40 mg. 0 12/10/2020 Active 20 mg delayed release capsule apixaban (ELIQUIS) 2.5 Take 1 Tablet by 180 Tablet 1 2 Active mg tablet mouth 2 times daily. Active Problems Problem Noted Date Hypercoagulable state ([facility]) 01/06/2021 Overview: 12/17/20 LLE DVT and B/L PE dx at [facility] - Risk factors: age > 60, obesity (BMI 3 3), long car ride from [place] to [place] (symptoms developed within the last 30 min of his trip) - Treated with apixaban for planned dura tion of 6 mo followed by thrombophilia testing - No prior personal of family history [place] E Encounters Date Type Specialty Care Team Description 09/07/2021 Hospital Encounter 08/18/2021 Telephone Hematology and [place], Prior Auth, M edication Oncology Uyen Aviles NP 08/10/2021 Telephone Hematology and [place], Prior Auth, O ther (i.e. Oncology Uyen Aviles NP radiology, etc. ); Follow-up 08/10/2021 Telephone Pulmonary Disease Radha Drummond, Orders (No n Pre-visit) ELEMENTARY LIBRARIAN (echo) 07/28/2021 Orders Only Pulmonary Disease Radha Drummond, Chronic sa ddle ELEMENTARY LIBRARIAN pulmonary embol ism with acute cor pulmo nale (HCC) (Primary Dx) 07/28/2021 Orders Only Hematology and [place], SOB (shortnes s of breath) (Primary Dx); Oncology Uyen Aviles NP Pulmonary embol ism and infarction ([facility]) ([facility]); Pulmonary hyper inflation 07/23/2021 Hospital Encounter 07/21/2021 Telephone Hematology and [place], Prior Auth, O ther (i.e. Oncology Uyen Aviles, EPIC PROFESSIONAL radiology, etc. ) (chest ct); Orders (No n Pre-visit) 07/15/2021 Orders Only Hematology and [place], SOB (shortnes s of breath) (Primary Dx); Oncology Uyen Aviles NP Pulmonary nodul e; Smoker 07/12/2021 Telephone Hematology and [place], Medication Qu estions Oncology Uyen Aviles NP 07/09/2021 Telephone Hematology and [place], Appointment R elated Oncology Uyen Aviles NP 07/08/2021 Office Visit Hematology and [place], Pulmonary emb olism and infarction ([facility]) ([facility]) (Primary Dx); Oncology Uyen Aviles NP Shortness of br eath; Left lower lobe pulmonary nodule 07/08/2021 Ancillary Vascular Surgery Deep vein t hrombosis Procedure (DVT) of left l ower extremity, unsp ecified chronicity, uns pecified vein ([facility]) ([facility]) from Last 3 Months Immunizations Name Administration Dates Next Due Covid-19 mRNA Vaccine (MODERNA COVID-19) PF 0.5 ml IM 2020, 07/08/2020 (12 yrs+) Social History Tobacco Use Types Packs/Day Years Used Date Former Smoker Quit: 01/06/19 96 Smokeless Tobacco: Never Used Alcohol Use Standard Drinks/Week Comments Not Currently 0 (1 standard drink = 0.6 oz pure alcoho l) Sex Assigned at Date Recorded Male 05/18/2021 22:10 EDT Last Filed Vital Signs Vital Sign Reading Time Taken Comments Blood Pressure 139/80 07/08/2021 1554 EDT Pulse 85 07/08/2021 1554 EDT Temperature 36.5 ??C (97.7 ??F) 07/08/2021 1554 EDT Respiratory Rate 16 07/08/2021 1554 EDT Oxygen Saturation 98% 07/08/2021 1554 EDT Inhaled Oxygen - - Concentration Weight 115.8 kg (255 lb 4.8 07/08/2021 1554 weight gain due to oz) EDT pandemic little activity Height 183.5 cm (6' 0.24) 07/08/2021 1554 EDT Body Mass Index 34.39 07/08/2021 1554 EDT Plan of Treatment Upcoming Encounters Date Type Specialty Care Team Description 10/06/2021 Telemedicine Hematology and Oncology Uyen Gabriel, EPIC PROFESSIONAL [address] [facility], [address] [place], [place] [address] (Wo rk) Health Maintenance Due Date Last Done Comments Hepatitis C Screen 1960 COVID-19 Vaccine (4 - Booster) 04/30/2021 12/28/2020, 07/08, 06/17/2020 Procedures Procedure Name Priority Date/Time Associated Diagnosis Comme nts CT OUTSIDE IMAGES Routine 09/07/2021 13:50 Result s for this CHEST EDT procedure are i n the results section. OUTSIDE IMAGES FOR Routine 08/11/2021 10:19 Resul ts for this ARCHIVE - ECHO EDT procedure are in the results section. XR OUTSIDE IMAGES Routine 07/23/2021 17:43 Result s for this CHEST EDT procedure are i n the results section. US LOWER VENOUS Routine 07/08/2021 15:50 Deep vein thrombosis Results for this DUPLEX EDT (DVT) of left lower procedur e are in extremity, the results unspecified section. chronicity, unspecified vein (HCC-CMS) (HCC) from Last [address] OUTSIDE IMAGES CHEST (09/07/2021 13:50 EDT) Specimen Narrative 09/07/2021 13:50 EDT This is a non-reportable exam. OUTSIDE IMAGES FOR ARCHIVE - ECHO (08/11/2021 10:19 EDT) Specimen Narrative [facility] - 08/11/2021 10:19 EDT This is a non-reportable exam. Performing Organization Address City/State/ZIP Code Phon e Number [facility] XR OUTSIDE IMAGES CHEST (07/23/2021 17:43 EDT) Specimen Narrative 07/23/2021 17:43 EDT This is a non-reportable exam. US LOWER VENOUS DUPLEX (DVT) LEFT (07/08/2021 15:50 EDT) Anatomical Region Laterality Modality Vascular Ultrasound Specimen Narrative [facility] - 07/09/2021 7:16 EDT Chronic web-like thrombus noted in the left popliteal vein. Performing Organization Address City/State/ZIP Code Phon e Number [facility] from Last 3 Months Insurance Payer Benefit Plan / Subscriber ID Effective Dates Phone Addre ss Type Group [place] P [id number] 2020-Present [address] [place] [address] Shady Martinez Personal/Family Self 1960 [address] (Home) [place] [address] Shady Martinez Personal/Family Self 1960 [address] (Home) [place] [address] Care Teams Ammunition Storekeeper Relationship Specialty Start Date End Date Radha Drummond FNP PCP - General 07/08/21 [address] [place], [place] [phone]
--- OUTSIDE RECORDS SUMMARY | 2021-09-22 00:35 | XMS_ITS | Encounter Summary ---
:1960 Author Organization [facility] Address [address] [place] [address] Care Team Providers Name Role Phone Radha Drummond JAMEEL Primary Care Provider Reason for Visit Vascular Lab (Routine) - Authorization Not Required Specialty Diagnoses / Procedures Referred By Contact Refer red To Contact Diagnoses Deep vein thrombosis (DVT) of left lower extremity, unspecified chronicity, unspecified vein ([facility]) ([facility]) Uyen Raines NP [facility] Vascular Lab Procedures US LOWER VENOUS DUPLEX [address] [facility], [address] [place] [address] Referral ID Status Reason Start Expiration Visits Visits Date Date Requested Authorized [id number] Authorization Not 01/06/2021 1 1 Required Encounter Details Date Type Department Care Team Description 07/08/2021 Ancillary Procedure [facility] De ep vein thrombosis Vascular Surgery - (DVT) of left lower [facility] extremity, unspecified [address] [place] [address] unspecified vein [phone] ([facility]) ([facility]) Social History Tobacco Use Types Packs/Day Years [...] 10/06/2021 Telemedicine Hematology and Oncology Uyen Gabriel, EVENT PLANNING INTERN [address] [facility], [address] [place], [place] [address] (Wo rk) documented as of this encounter Procedures Procedure Name Priority Date/Time Associated Diagnosis Comme nts US LOWER VENOUS Routine 07/08/2021 15:50 Deep vein thrombosis Results for this DUPLEX EDT (DVT) of left lower procedur e are in extremity, the results unspecified section. chronicity, unspecified vein (HCC-CMS) (HCC) documented in this encounter Results US LOWER VENOUS DUPLEX (DVT) LEFT (07/08/2021 15:50 EDT) Anatomical Region Laterality Modality Vascular Ultrasound Specimen Narrative [facility] - 07/09/2021 7:16 EDT Chronic web-like thrombus noted in the left popliteal vein. Performing Organization Address City/State/ZIP Code Phon e Number [facility] documented in this encounter Visit Diagnoses Diagnosis Deep vein thrombosis (DVT) of left lower extremity, unspecified chronicity, unspecified vein (HCC-CMS) (HCC) documented in this encounter Care Teams Blister Packaging Machine Operator Relationship Specialty Start Date End Date Radha Drummond FNP PCP - General 07/08/21 [address] [place] [address] documented as of this encounter
--- OUTSIDE RECORDS SUMMARY | 2021-09-22 00:35 | XMS_ITS | Encounter Summary ---
:1960 Author Organization [facility] Address [address] [place] [address] Care Team Providers Name Role Phone Radha Drummond Primary Care Provider Reason for Visit Reason Onset Date Comments Orders (Non Pre-visit) 08/10/2021 echo Encounter Details Date Type Department Care Team Description 08/10/2021 Telephone [facility] Radha Drummond FNP Orders (Non Pre-visit) Pulmonology & Critical [address] ([place]) [address] [phone] Social History Tobacco Use Types Packs/Day Years Used Date Former Smoker Quit: 01/06/19 96 Smokeless Tobacco: Never Used Alcohol Use Standard Drinks/Week Comments Not Currently 0 (1 standard drink = 0.6 oz pure alcoho l) Sex Assigned at Date Recorded Male 05/18/2021 22:10 EDT documented as of this encounter Miscellaneous Notes Telephone Encounter - Edwin Nix RT - 08/10/2021 1528 EDT R: Dr Damon ok with oct ECHO, requests those images be pushed. [place]/DLCO walk For distance. who triaged? Marisol Type of appt: NPV To be seen by:[place], Terri, [place], Chrissy or [facility] clinic When:next available Diagnosis:PE Imaging needed:none needed [place] needed:martina with DLCO and 6 minutes walk test for distance Are orders in?:YES Referring provider: UYEN GARCÍA [[id number]] elephone Encounter - Sara Reilly - 08/10/2021 1323 EDT Abida from pcp's office calling regarding request to order echo. Abida says they received request,but it has been denied by insurance. Please call back to discuss documented in this encounter Plan of Treatment Upcoming Encounters Date Type Specialty Care Team Description 10/06/2021 Telemedicine Hematology and Oncology Uyen Gabriel, KNIFE GRINDER [address] [facility], [address] [place], [place] [phone] (Wo rk) documented as of this encounter Visit Diagnoses Not on filedocumented in this encounter Care Teams Senior Oracle Adf Developer Relationship Specialty Start Date End Date Radha Drummond FNP PCP - General 07/08/21 [address] [place] [address] documented as of this encounter
--- OUTSIDE RECORDS SUMMARY | 2021-09-22 00:35 | XMS_ITS | Encounter Summary ---
:1960 Author Organization [facility] Address [address] [place] [address] Care Team Providers Name Role Phone Radha Drummond JAMEEL Primary Care Provider Reason for Referral Radiology Services (3 - 10 Business Days) - Denied Specialty Diagnoses / Procedures Referred By Contact Refer red To Contact Diagnoses Pulmonary embolism and infarction (HCC-CMS) (HCC) Shortness of breath Left lower lobe pulmonary nodule Uyen Raines, CAN RECONDITIONER Procedures CT CHEST W CONTRAST CHG DIAGNOSTIC COMPUTED TOMOGRAPHY THORAX W/CONTRAST [address] [facility] [address] [place] [phone] Referral ID Status Reason Start Date Expiration Date Visits Requ ested Visits Authorized [id number] Denied 07/08/2021 1 0 Reason for Visit Reason Comments Follow-up Encounter Details Date Type Department Care Team Description 07/08/2021 Office Visit [facility] Uyen Raines Pul monary embolism and infarction (HCC-CMS) (HCC) (Primary Dx); Hematology & CAN RECONDITIONER Shortness of breath; Oncology - Main [address] Left lower lobe pulmonary nodule [address] [place] [address] [facility] [place] [address] (Wo rk) Social History Tobacco Use Types Packs/Day Years Used Date Former Smoker Quit: 01/06/19 96 Smokeless Tobacco: Never Used Alcohol Use Standard Drinks/Week Comments Not Currently 0 (1 standard drink = 0.6 oz pure alcoho l) Sex Assigned at Date Recorded Male 05/18/2021 22:10 EDT documented as of this encounter Last Filed Vital Signs Vital Sign Reading [...] Body Mass Index 34.39 07/08/2021 1554 EDT documented in this encounter Patient Instructions Patient InstructionsUyen Raines NP - 07/08/2021 16:30 EDT Dose reduce to Eliquis 2.5 mg twice a day. I have sent you a new prescription. I have ordered you a CT chest at [facility]. I will see you back via ZOOM in one month! documented in this encounter Ordered Prescriptions Prescription Sig Dispensed Refills Start Date End Date apixaban (ELIQUIS) 2.5 mg Take 1 Tablet by 180 Tablet 1 07/2021 tablet mouth 2 times daily. documented in this encounter Progress Notes Zully Haywood PA-C - 07/08/2021 1630 EDT Thrombosis & Hemostasis Program (THP) Follow Up Visit Date of Service: 07/08/2021 Reason for Visit: F/u proximal LLE DVT Problem List: Patient Active Problem List Diagnosis ??? Hypercoagulable state ([facility]) ([facility]) 12/17/20 LLE DVT and B/L PE dx at [facility] - Risk factors: age > 60, obesity (BMI 33), long car ride from [place] (symptoms developed within the last 30 min of his trip) - Treated with apixaban for planned duration of 6 mo followed by thrombophilia testing - No prior personal of family history VTE HPI: Socrates presents today for follow up about 6 months out from initial VTE diagnosis with bilateralPE and LLE DVT on 12/17/20. He reports his LLE symptoms are significantly improved and he is only experiencing trace LLE edema at the end of the day which resolves with leg elevation. He does however endorse continue AYALA with climbing stairs or bending forward to put on socks/shoes. He states this is continued and unchanged since PE diagnosis although it sounds like he did bring this up with his PCP prior to VTE diagnosis. He has a remote smoking history. Socrates denies bleeding issues and states he is pretty good about taking his Eliquis twice daily. Herarely wears compression socks and states his leg was more swollen after removing them once so he isnot convinced they are working. Trey lives in [facility] and prefers getting his diagnostics done at [facility] when possible. ROS: I completed a 10 point review of systems which is documented on the follow up visit form scanned into [employer]. Pertinent positives and negatives are mentioned above. Social History: Patient reports that he quit smoking about 25 years ago. He has never used smokeless tobacco. He reports previous alcohol use. He reports that he does not use drugs. Medications: Outpatient Encounter Medications as of 07/08/2021: ??? apixaban (ELIQUIS) 2.5 mg tablet, 2.5 mg, oral, BID ??? [DISCONTINUED] apixaban (ELIQUIS) 5 mg tablet, 5 mg, oral, BID ??? [DISCONTINUED] buPROPion (WELLBUTRIN SR) 150 mg SR tablet, 150 mg, oral, QAM (Patient not taking: Reported on 07/08/2021) ??? DULoxetine (CYMBALTA) 20 mg delayed release capsule, 40 mg. ??? [DISCONTINUED] rOPINIRole (REQUIP) 0.25 mg tablet, 0.25 mg, oral, AT BEDTIME PRN (Patient not taking: Reported on 07/08/2021) Allergies: Patient is allergic to buspar [buspirone]. Physical Exam: Vitals: 07/08/21 1554 BP: 139/80 Pulse: 85 Resp: 16 Temp: 36.5 ??C (97.7 ??F) SpO2: 98% Weight: (!) 115.8 kg (255 lb 4.8 oz) Height: 183.5 cm (72.24) Estimated body mass index is 34.39 kg/m?? as calculated from the following: Height as of this encounter: 183.5 cm (72.24). Weight as of this encounter: 115.8 kg (255 lb 4.8 oz). General: Alert and cooperative and in no acute distress. Lungs: Clear to auscultation bilaterally. Heart: Regular, normal S1 and S2, no murmurs, rubs, or gallops Abdomen: Deferred Extremities: Trace LLE edema above sock line, mild fine purple discoloration along medial L ankle. Calves soft, non-tender on compression. Labs: 12/17/20 [facility]: WBC 13.32, RBC 5.12, Hgb 14.9, HCT 43.9, MCV 85.7, MCH 29.1, MCHC 33.9, RDW 12.9, platelets 345, MPV10.9. D-dimer 4849 (< 500), troponins negative PT 10.5 INR 1.0 PTT 27 Cr 1.5 Negative COVID swab PSA 0.8 Imaging: Venous BLE US [facility] 07/08/21: The left popliteal vein was constricted, was partially compressible, was hyperechoic and had web-like thrombus. All other visualized veins in the left lower extremity demonstrated normal compressibility with no intraluminal echoes present. CTA Chest at [facility] 12/17/20: significant bilateral lower lobe PE Venous BLE US at [facility] 12/18/20: thrombosis of L distal femoral vein through peroneal veins Echo 12/21/20 at [facility]: Left Ventricle: The left ventricular chamber size is normal. Left ventricular wall thickness is normal. No ventricular septal defect is visualized. There is normal global left ventricular systolic function. The quantitative left ventricular ejection fraction by biplane Terrell's method is 55%. There are no left ventricular segmental wall motion abnormalities. The left ventricular diastolic filling pattern is consistent with impaired LV relaxation. Doppler assessment is consistent with normal left sided filling pressure. Left Atrium: The left atrium is normal in size. No atrial septal defect is visualized. Right Ventricle: Right ventricular chamber size, wall thickness, and systolic function are within normal limits. No pulmonary hypertension is noted. The estimated pulmonary artery systolic pressure is 20 mmHg. The estimated right atrial pressure is 3 mmHg. Right Atrium: The right atrium appears normal. Aortic Valve: The aortic valve is tricuspid. The aortic valve leaflets are moderately thickened. Mild aortic leaflet calcification is visualized. There is aortic annular calcification. There is no evidence of aortic valve stenosis. Mild (1+/4+) aortic valve regurgitation is present. Mitral Valve: There is mitral annular calcification. There is no evidence of mitral stenosis. There is trace mitral regurgitation present. Tricuspid Valve: The tricuspid valve appears normal in structure and function. There is no tricuspid valve stenosis. There is trace tricuspid regurgitation present. Pulmonic Valve: The pulmonic valve appears normal in structure and function. There is no pulmonic stenosis present. There is trace pulmonic regurgitation present. Pericardium: No pericardial fat pad is visualized. Aorta: There is mild dilatation of the aortic root.3.8 cm There is moderate dilatation of the ascending aorta. The aortic arch is normal in size. Venous: The inferior vena cava appears normal in size. There is a greater than 50% respiratory change in the inferior vena cava dimension. Assessment: Socrates Martinez is a 61 yo male with PMHx significant for CKD III obesity, restless leg syndrome, depression/anxiety who was hospitalized at [facility] in Dec 2020 and diagnosed with unprovoked bilateral PEs (without RHS) and proximal LLE DVT. He reportedly developed leg pain/swelling and SOB after driving from [place] to [place]. After being admitted and started on heparin he was discharged on apixaban and remains on this for a planned 6 month treatment phase. He returned today for repeat LLE Venous US and follow up visit. LLE Venous US today showed left popliteal vein was constricted, was partially compressible, was hyperechoic and had web-like thrombus. This was Socrates's first episode of VTE. He does have RF for VTE including age > 60, obesity (BMI 34 ) and long travel. He is a former smoker who quit in 1995. Appropriate cancer screening is up to date. He has a 3 mm nodule noted on CT Chest that requires repeat in 6-12 months. Today Brain reports continued but unchanged SOB with bending forward and AYALA. He feels winded easilywith stairs. Aware of his obesity and former smoking potentially playing a role. In regards to his LLE, his symptoms have resolved. Mild edema that resolves with leg elevation at night. Wears compression sometimes without notable result. Plan: Hypercoagulable state- - Anticoagulation: Decrease apixaban from 5 mg BID to 2.5 mg BID for secondary prevention as he has completed his 6 months of treatment phase. - Defer thrombophilia testing until next visit due to ongoing pulmonary symptoms as AC will need to be held for 10-14 days prior to testing. - Post-thrombotic syndrome: compression stockings as needed and with long air or car travel - Education: Reviewed signs/symptoms of VTE and increased bleeding risk while on an anticoagulant SOB/AYALA- - repeat CTA Chest to assess for sequela of bilateral PE due to ongoing symptoms. - Opt for CTA Chest over VQ scan secondary to need to follow up on 3 mm LLL pulmonary nodule as well(within recommended window of 6-12 month repeat). - DDx includes CTEPH, emphysema/chronic bronchitis, deconditioning, CHF, obesity related SOB, other Pulmonary Nodule- - LLL had 3 mm nodule on CTA Chest 12/2020, f/u 6-12 months recommended. Will re-eval on repeat CTA Chest as above Follow-up: 1 month to review CTA Chest results/implications and consider holding AC for thrombophilia testing as planned. Please contact my office with questions/concerns. *I I spent a total of 30 minutes on the date of this encounter as indicated in the above progress note. ZULLY HAYWOOD PA-C 07/08/2021 17:07 Thrombosis and Hemostasis Program Attestation statement: I performed or was present during the amin or critical portions of the visit and participated in the management of the patient. I agree with the findings and plan of care documented in the trainee's note. JAMEEL Zheng 07/08/21 17:22 CC: Radha Drummond documented in this encounter Plan of Treatment Upcoming Encounters Date Type Specialty Care Team Description 10/06/2021 Telemedicine Hematology and Oncology Uyen Gabriel, CAN RECONDITIONER [address] A venue [facility], [facility], [address] [place], [place] [address] (Wo rk) Scheduled Orders Name Type Priority Associated Diagnoses Order S chedule CT CHEST W CONTRAST Imaging Routine Pulmonary embolism an d Expected: 07/22/2021 infarction (HCC-CMS) (Approx imate), Expires: (HCC) 01/08/2023 Shortness of josee ath Left lower lobe pulmonary nodule documented as of this encounter Visit Diagnoses Diagnosis Pulmonary embolism and infarction (HCC-C MS) (HCC) - Primary Other pulmonary embolism and infarction Shortness of breath Left lower lobe pulmonary nodule documented in this encounter Discontinued Medications Medication Sig Discontinue Reason Start Date End Date rOPINIRole (REQUIP) 0.25 Take 0.25 mg by Therapy completed 12/18/1907/08/2021 mg tabletIndications: mouth at bedtime as restless leg syndrome needed. buPROPion (WELLBUTRIN Take 150 mg by mouth Therapy completed 07/08/2021 SR) 150 mg SR tablet every morning. apixaban (ELIQUIS) 5 mg Take 1 Tablet by Dose adjustment 05/19/2021 07/08/2021 tablet mouth 2 times daily. documented as of this encounter Care Teams Plating Department Helper Relationship Specialty Start Date End Date Radha Drummond FNP PCP - General 07/08/21 [address] [place] [address] documented as of this encounter
--- OUTSIDE RECORDS SUMMARY | 2021-09-22 00:35 | XMS_ITS | Encounter Summary ---
:1960 Author Organization [facility] Address [address] [place] [address] Care Team Providers Name Role Phone Unknown, Provider Primary Care Provider Reason for Visit (Routine/Next Available) - Receiving Office to Obtain Authorization Specialty Diagnoses / Procedures Referred By Contact Refer red To Contact Procedures Unknown, Provider, OUTSIDE IMAGES INTRAVASCULAR Referral ID Status Reason Start Expiration Visits Visits Date Date Requested Authorized [id number] Receiving Office 1 1 to Obtain 1 Authorization Encounter Details Date Type Department Care Team Description 12/18/2020 Hospital Encounter [facility] [place] Social History Tobacco Use Types Packs/Day Years Used Date Never Assessed Sex Assigned at Date Recorded Male 05/18/2021 22:10 EDT documented as of this encounter Medications at Time of Discharge Medication Sig Dispensed Refills Start Date End Date DULoxetine (CYMBALTA) 20 40 mg. 0 12/10/2020 mg delayed release capsule apixaban (ELIQUIS) 5 mg .COMPLEX 0 12/18/2020 1 03/08/2020 tablet ELIQUIS 5 mg tablet TAKE TWO TABLETS BY 0 021 01/06/2021 MOUTH TWICE A DAY FOR 7 DAYS THEN TAKE ONE TABLET BY MOUTH TWICE A DAY rOPINIRole (REQUIP) 0.25 Take 0.25 mg by mouth 0 12/17/2020 07/08/2021 mg tabletIndications: at bedtime as needed. restless leg syndrome documented as of this encounter Discharge Disposition Disposition Code Departure Means Destination Home or Self Care documented in this encounter Plan of Treatment Upcoming Encounters Date Type Specialty Care Team Description 10/06/2021 Telemedicine Hematology and Oncology Uyen Gabriel, SU [address] [facility], [facility], [address] [place], [place] [address] (Wo rk) documented as of this encounter Procedures Procedure Name Priority Date/Time Associated Comments Diagnosis US OUTSIDE IMAGES Routine 12/24/2020 13:00 Result s for this INTRAVASCULAR EDT procedure are in the results section. documented in this encounter Results US OUTSIDE IMAGES INTRAVASCULAR (12/24/2020 13:00 EDT) Specimen Narrative 12/24/2020 13:00 EDT This is a non-reportable exam. documented in this encounter Visit Diagnoses Not on filedocumented in this encounter Care Teams Smoking Tobacco Packing Machine Hand Relationship Specialty Start Date End Date Unknown, Provider, PCP - General 01/26/15 07/07/21 documented as of this encounter
--- OUTSIDE RECORDS SUMMARY | 2021-09-22 00:35 | XMS_ITS | Encounter Summary ---
:1960 Author Organization [facility] Address [address] [place] [address] Care Team Providers Name Role Phone Unknown, Provider Primary Care Provider Radha Drummond Primary Care Provider Reason for Visit Reason Onset Date Comments Appointment Related 12/25/2020 Encounter Details Date Type Department Care Team Description 12/25/2020 Telephone [facility] Children's Viktor Kwong MBBS Appointment Related Hospital Pediatric [address] [place] [address] Hematology & Oncology [facility], [facility], [address] [place] [phone] (Wo rk) Social History Tobacco Use Types Packs/Day Years Used Date Never Assessed Sex Assigned at Date Recorded Male 05/18/2021 22:10 EDT documented as of this encounter Miscellaneous Notes Telephone Encounter - Virginia Baker - 12/25/2020 0727 EDT PAS Message: Shady called to find out if you have received a referral from [facility] - please call me a [phone] documented in this encounter Plan of Treatment Upcoming Encounters Date Type Specialty Care Team Description 10/06/2021 Telemedicine Hematology and Oncology Uyen Gabriel, CEMENTER MACHINE APPLICATOR [address] [facility], [facility], [address] [place], [place] [address] (Wo rk) documented as of this encounter Visit Diagnoses Not on filedocumented in this encounter Care Teams Admissions Specialist Relationship Specialty Start Date End Date Unknown, Provider, PCP - General 01/26/15 07/07/21 Radha Drummond FNP PCP - General 07/08/21 [address] [place] [address] documented as of this encounter
--- NOTE | 2021-09-22 15:08 | DI.US_ITS ---
APPROVED REPORT EXAM: Comprehensive 2D, Doppler, and color-flow Echocardiogram Patient Location: Out-Patient Tow Operator: Donna Ann RDCS (AE) Indications: SOB, Activity Intolerance Other Information Study Quality: Adequate. Technically limited study due to body habitus. Conclusion Normal left ventricular wall thickness and chamber size. Estimated ejection fraction is 55%. Wall m otion is normal Normal right ventricular size and systolic function Both atria are normal in size The aortic valve is sclerotic and trileaflet with mild regurgitation. There is no aortic stenosis Normal mitral valve with trace to mild regurgitation Normal tricuspid valve with trace regurgitation. Estimated right ventricular systolic pressure is 23 mmHg Dilated ascending aorta measuring 4.57 cm Wall motion Left Ventricle The left ventricle is normal size. The left ventricular systolic function is normal. The left ventric ular ejection fraction is within the normal range. There is normal left ventricular wall thickness. T here is normal LV segmental wall motion. There is no ventricular septal defect visualized. LVEF is 55 %. Right Ventricle The right ventricle is normal size. The right ventricular systolic function is normal. The RVSP is 23 .0 mmHg. Atria The left atrium size is normal. The right atrium size is normal. The interatrial septum is intact wit h no evidence for an atrial septal defect. Aortic Valve The Aortic valve is sclerotic. Aortic valve is trileaflet. No hemodynamically significant valvular ao rtic stenosis. Mild aortic regurgitation. Mitral Valve The mitral valve is normal in structure. No evidence of mitral valve stenosis. Trace to mild mitral r egurgitation. Tricuspid Valve The tricuspid valve is normal in structure. There is no tricuspid valve stenosis. Trace tricuspid reg urgitation. Pulmonic Valve The pulmonary valve is normal in structure. There is no pulmonic valvular stenosis. Trace pulmonic re gurgitation. Great Vessels The aortic root is normal in size. The ascending aorta is moderately dilated.4.57 cm IVC is normal in size and collapses >50% with inspiration. Pericardium There is no pericardial effusion. 2D Dimensions IVSD d PLAX 0.92 cm M: 0.6-1.2 LV Vol A2C d MOD 128.0 mL LVPW d PLAX 0.93 cm M: 0.6 - 1.2 LV Vol A4C d MOD 143.2 mL LVID d PLAX 4.44 cm M: 4.2 - 5.8 LV EF A4C MOD 55.4 % LVDs 3.10 cm M: 2.5 - 4.0 LV EF A2C MOD 55.3 % Ao Root d 3.68 cm M: 3.1 - 3.7 LV EF Biplane MOD 55.6 % RA Area A4C 15.24 cm2 SV 75.86 mL RA Vol/ BSA A4C s A-L 18.0 mL/m2 SV Index 32.20 mL/m2 Ao Asc Diam d 4.57 cm M: 2.6 - 3.4 LV EF Teichholz 56.6 % LVEF (Terrell's) 55.59 % M: 52 - 72 LV Volume 97.19 mL M: 62 - 150 LV Volume Index 41.18 mL/m2 M: 34 - 74 LV Vol Biplane MOD 136.5 mL FS 29.45 % M-Mode TAPSE 2.70 cm (M/F) >1.7 LV Diastology MV E' medial 0.098 (>0.07 m/s) E/A Ratio 0.8 LV E/e MED 5.60 (<14) MV E Vmax 0.55 (0.4-1.3 m/s) MV E' lateral 0.081 (>0.1 m/s) MV A Vmax 0.65 (0.4-1.3 m/s) LV E/e LAT 6.70 (<14) MV E/A Ratio 0.84 MV E/E' medial 5.60 MV E/E' lateral 6.72 Aortic Valve LVOT Area 3.47 cm2 AoV Area Vmax 1.84 cm2 LVOT Vmax 1.16 m/s AoV Area/ BSA (Vmax) 0.78 cm2/m2 LVOT Mean Jad. 0.79 m/s CIRO Mean Jad. 1.71 cm2 LVOT Peak Grad 5.4 mmHg CIRO Mean Jad. Index 0.73 cm2/m2 LVOT Mean Grad 2.9 mmHg AR DT 3591 msec LVOT VTI 0.217 m AR PHT 1041 msec LVOT Diam s 2.10 cm AoV Vmax 2.20 m/s Velocity Ratio 0.52 AoV Mean Jad. 1.61 m/s AoV Peak Grad 19.4 mmHg LVOT SV 75.40 mL AoV Mean Grad 11.4 mmHg AoV VTI 0.408 m AoV Area VTI 1.85 cm2 AoV Area/ BSA (VTI) 0.78 cm/m2 Mitral Valve MV DT 231 (160-240 msec) MV PHT 67 msec MV Area PHT 3.29 cm2 MV VTI 0.293 m MV Area VTI 2.58 (4.0-6.0 cm2) Pulmonary Valve PV Vmax 0.73 (0.5-1.5 m/s) RVOT Peak Gr. 1.19 mmHg PV Peak Grad 2.2 mmHg RVOT Mean Gr. 0.55 mmHg PV Mean Grad 1.2 mmHg RVOT VTI 0.101 m PV VTI 0.131 m RVOT Vmax 0.54 m/s Tricuspid Valve TR Peak Grad 20.0 mmHg TR Vmax 2.24 m/s RA Pressure 3.00 mmHg RVSP (TR) 23.0 mmHg
== END ==
PROVIDERS: PCP Family Medicine; Visit Provider Nurse Practitioner Family
DX: R06.02 Shortness of breath (principal); Z73.6 Limitation of activities due to disability
CPT/HCPCS: 93306